=== PATIENT | female | born 2000 | race Caucasian/White ===

== ENCOUNTER 2019-11-09 06:50 | Emergency (ER) | payer SELFPAY ==
[~2019-11-09] VITALS: Ht 175 cm; Wt 136.0 kg
[2019-11-09] MEDS ORDERED: NS IV 1000 ML 1,000 ML IV SCH (07:00)
--- NOTE | 2019-11-09 07:05 | ED GU-Female ---
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 Hx of irreg menses w heavy bleeding in the past. Previous Hx of blood transfusion 2 to anemia caused by heavy vag. bleeding. Was on Depo for 2 years and states she had no bleeding for 2 years during that time. 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 Allergies and Home Medications Allergies Coded Allergies: hydrocodone (Verified Allergy, Unknown, 11/09/19) Home Medications Ibuprofen 800 Mg Tablet, 800 MG PO Q8H PRN for PAIN Prescribed by: VIKKI ERAZO on 11/09/19 0754 Medroxyprogesterone Acetate 10 Mg Tablet, 10 MG PO DAILY Prescribed by: VIKKI ERAZO on 11/09/19 0753 Patient Home Medication List Home Medication List Reviewed: Yes Review of Systems Review of Systems Constitutional: see HPI; No diaphoresis; dizziness; No fever, No malaise, No weakness Respiratory: No cough, No short of breath Cardiovascular: No chest pain, No edema, No palpitations, No syncope Gastrointestinal: No abdominal pain, No constipation, No diarrhea, No loss of appetite, No melena, No nausea, No vomiting Genitourinary: see HPI; denies burning, denies discharge, denies dysuria, denies frequency, denies flank pain, denies hematuria, denies incontinence, denies pain, denies urgency Musculoskeletal: No back pain, No joint pain Skin: No change in color, No change in hair/nails Psychiatric/Neurological: Denies Numbness, Denies Paresthesia, Denies Tingling, Denies Tremors, Denies Weakness Past Sozavvo-Qipmaq-Dqynsa Hx Past Med/Social Hx: Reviewed Nursing Past Med/Soc Hx Patient Social History Recent Foreign Travel: No Contact w/Someone Who Travel: No Recent Hopitalizations: No Physical Abuse: No Sexual Abuse: No Past Medical History Surgeries: Yes Eye Surgery, Gallbladder, Tonsillectomy Respiratory: No Cardiac: Yes Hypertension Neurological: No Genitourinary: No Gastrointestinal: No Musculoskeletal: No Endocrine: No HEENT: No Cancer: No Psychosocial: No Integumentary: No Blood Disorders: No Physical Exam Vital Signs Vital Signs - First Documented 11/09/19 06:50 Temp 37.1 Pulse 116 Resp 18 B/P (MAP) 169/104 (125) Pulse Ox 98 O2 Delivery Room Air Capillary Refill : Height, Weight, BMI Height: '" Weight: lbs. oz. kg; BMI Method: General Appearance: WD/WN, no apparent distress Cardiovascular: regular rate, rhythm, no edema, no gallop, no JVD Respiratory: chest non-tender, lungs clear Gastrointestinal: normal bowel sounds, non tender, soft Back: normal inspection, no CVA tenderness Extremities: normal range of motion, non-tender, no pedal edema Neurologic/Psychiatric: no motor/sensory deficits, alert, normal mood/affect Skin: normal color, warm/dry Progress/Results/Core Measures Suspected Sepsis SIRS Temperature: Pulse: Respiratory Rate: Laboratory Tests 11/09/19 07:08: White Blood Count 10.2 Blood Pressure / Mean: Laboratory Tests 11/09/19 07:08: Creatinine 0.80, Platelet Count 291 Results/Orders Lab Results Laboratory Tests Test 11/09/19 07:08 Range/Units White Blood Count 10.2 4.3-11.0 10^3/uL Red Blood Count 4.26 L 4.35-5.85 10^6/uL Hemoglobin 9.2 L 11.5-16.0 G/DL Hematocrit 31 L 35-52 % Mean Corpuscular Volume 73 L 80-99 FL Mean Corpuscular Hemoglobin 22 L 25-34 PG Mean Corpuscular Hemoglobin Concent 30 L 32-36 G/DL Red Cell Distribution Width 15.7 H 10.0-14.5 % Platelet Count 291 130-400 10^3/uL Mean Platelet Volume 10.4 7.4-10.4 FL Neutrophils (%) (Auto) 70 42-75 % Lymphocytes (%) (Auto) 22 12-44 % Monocytes (%) (Auto) 4 0-12 % Eosinophils (%) (Auto) 3 0-10 % Basophils (%) (Auto) 1 0-10 % Neutrophils # (Auto) 7.1 1.8-7.8 X 10^3 Lymphocytes # (Auto) 2.2 1.0-4.0 X 10^3 Monocytes # (Auto) 0.4 0.0-1.0 X 10^3 Eosinophils # (Auto) 0.3 0.0-0.3 10^3/uL Basophils # (Auto) 0.1 0.0-0.1 10^3/uL Sodium Level 140 135-145 MMOL/L Potassium Level 4.0 3.6-5.0 MMOL/L Chloride Level 104 98-107 MMOL/L Carbon Dioxide Level 23 21-32 MMOL/L Anion Gap 13 5-14 MMOL/L Blood Urea Nitrogen 10 7-18 MG/DL Creatinine 0.80 0.60-1.30 MG/DL Estimat Glomerular Filtration Rate > 60 BUN/Creatinine Ratio 13 Glucose Level 107 H 70-105 MG/DL Calcium Level 8.9 8.5-10.1 MG/DL My Orders Orders - ROVENSTVIKKI PINA DO Ed Iv/Invasive Line Start (11/09/19 06:56) Cbc With Automated Diff (11/09/19 06:56) Basic Metabolic Panel (11/09/19 06:56) Ns Iv 1000 Ml (Sodium Chloride 0.9%) (11/09/19 07:00) Vital Signs/I&O 11/09/19 11/09/19 06:50 08:01 Temp 37.1 36.6 Pulse 116 94 Resp 18 20 B/P (MAP) 169/104 (125) 146/91 (125) Pulse Ox 98 98 O2 Delivery Room Air Capillary Refill : Progress Note : Progress Note pt well appearing and in no distress w normal vitals (actually elevated BP). Discussed treatment and f/u w PCP this week, ER sooner if worse or not improving and unable to see PCP. Departure Impression Primary Impression: Menometrorrhagia Additional Impression: DUB (dysfunctional uterine bleeding) Disposition: 01 HOME, SELF-CARE Condition: Stable Departure-Patient Inst. Decision time for Depature: 07:54 Referrals: NO,LOCAL PHYSICIAN (PCP/Family) Primary Care Physician Patient Instructions: Heavy Periods (DC) Add. Discharge Instructions: Call Dr Jenkins's today to notify her of your heavy bleeding and your treatment given today in the ER. Schedule a follow up appointment with her this week. Return to the ER if your bleeding is not improving or if you become light headed or short of breath. All discharge instructions reviewed with patient and/or family. Voiced understanding. Scripts Ibuprofen (Ibuprofen) 800 Mg Tablet 800 MG PO Q8H PRN for PAIN, #30 TAB 0 Refills Prov: VIKKI ERAZO DO 11/09/19 Medroxyprogesterone Acetate (Provera) 10 Mg Tablet 10 MG PO DAILY, #10 TAB Prov: VIKKI ERAZO DO 11/09/19 VIKKI ERAZO DO Nov 09, 2019 07:05
[2019-11-09 07:44] LABS: WHITE BLOOD COUNT 10.2 10^3/uL (4.3-11.0)
[2019-11-09 07:45] LABS: BASOPHILS # (AUTO) 0.1 10^3/uL (0.0-0.1); BASOPHILS % (AUTO) 1 % (0-10); EOSINOPHILS # (AUTO) 0.3 10^3/uL (0.0-0.3); EOSINOPHILS % (AUTO) 3 % (0-10); HEMATOCRIT 31 % (35-52); HEMOGLOBIN 9.2 G/DL (11.5-16.0); LYMPHOCYTES # (AUTO) 2.2 X 10^3 (1.0-4.0); LYMPHOCYTES % (AUTO) 22 % (12-44); MEAN CORPUSCULAR HEMOGLOBIN 22 PG (25-34); MEAN CORPUSCULAR HGB CONC 30 G/DL (32-36); MEAN CORPUSCULAR VOLUME 73 FL (80-99); MEAN PLATELET VOLUME 10.4 FL (7.4-10.4); MONOCYTES # (AUTO) 0.4 X 10^3 (0.0-1.0); MONOCYTES % (AUTO) 4 % (0-12); NEUTROPHILS # (AUTO) 7.1 X 10^3 (1.8-7.8); NEUTROPHILS % (AUTO) 70 % (42-75); PLATELET COUNT 291 10^3/uL (130-400); RED CELL DISTRIBUTION WIDTH 15.7 % (10.0-14.5)
[2019-11-09 07:48] LABS: CARBON DIOXIDE 23 MMOL/L (21-32); CHLORIDE 104 MMOL/L (98-107); SODIUM 140 MMOL/L (135-145)
[2019-11-09 07:49] LABS: BUN/CREATININE RATIO 13; CALCIUM 8.9 MG/DL (8.5-10.1); GFR ESTIMATED > 60; GLUCOSE 107 MG/DL (70-105)
[2019-11-09] MEDS ORDERED: MEDR10TA PO (07:53)
[2019-11-09] MEDS ORDERED: IBUP-1780 PO (07:54)
[2019-11-09 08:01] VITALS: BP 146/91
== END 2019-11-09 08:01 | disposition home or self-care (01) ==
LOC: EDBD 06:56 → ER FS 06:56
DX: N92.1 Excessive and frequent menstruation with irregular cycle (principal); N93.8 Other specified abnormal uterine and vaginal bleeding
CPT/HCPCS: 36415; 80048; 85025

== ENCOUNTER → 2019-11-10 | Outpatient (CLI) | payer SELFPAY ==
[~2019-11-10] MED LIST: IBUP-1780 PO; MEDR10TA PO
[2019-11-10 10:18] LABS: HEMOGLOBIN 8.3 G/DL (11.5-16.0)
== END ==
LOC: LAB FS 09:45
PROVIDERS: ATTEND Family Medicine
DX: N92.0 Excessive and frequent menstruation with regular cycle (principal)
CPT/HCPCS: 36415; 85014; 85018

== ENCOUNTER 2019-11-21 21:03 | Inpatient (IN) | payer SELFPAY ==
[~2019-11-21] VITALS: Ht 175.3 cm; Wt 158.2 kg
--- NOTE | 2019-11-21 21:15 | ED General ---
General Stated Complaint: FEELING FAINT,CRAMPING,WEAKNESS,HIGH HEART RATE History of Present Illness Date Seen by Provider: November 21, 2019 Time Seen by Provider: 21:14 Initial Comments This patient is a 19-year-old female presents to the emerge from for abnormal vaginal bleeding. Patient was seen here 2 weeks ago for the same was given a shot of Provera. Patient also surgically seen and PCPs office and given a double shot. Patient states she still having vaginal bleeding. Patient has not followed up with RN HEMODIALYSIS. Denies any significant symptoms. Do medical evaluation treatment is needed. Patient is aware that ultrasound was not available this emergency department. Timing/Duration: 1 Week Associated Systoms: No Denies Symptoms, No Chest Pain, No Cough, No Diaphoresis, No Fever/Chills, No Headaches, No Loss of Appetite, No Malaise, No Nausea/Vomiting, No Rash, No Seizure, No Shortness of Air, No Syncope, No Weakness, No Other Allergies and Home Medications Allergies Coded Allergies: hydrocodone (Verified Allergy, Unknown, 11/09/19) Home Medications Ibuprofen 800 Mg Tablet, 800 MG PO Q8H PRN for PAIN Prescribed by: VIKKI ERAZO on 11/09/19 0754 Medroxyprogesterone Acetate 10 Mg Tablet, 10 MG PO DAILY Prescribed by: VIKKI ERAZO on 11/09/19 0753 Patient Home Medication List Home Medication List Reviewed: Yes Review of Systems Review of Systems Constitutional: No no symptoms reported; see HPI; No chills, No diaphoresis, No dizziness, No fever, No malaise, No weakness, No weight gain, No weight loss, No other EENTM: No see HPI, No no symptoms reported, No ear discharge, No hearing loss, No ear pain, No blurred vision, No double vision, No eye pain, No tearing, No vision loss, No dental problems, No hoarseness, No mouth pain, No mouth swelling, No epistaxis, No nose congestion, No nose pain, No throat pain, No throat swelling, No other Respiratory: No no symptoms reported, No see HPI, No cough, No dyspnea on exertion, No hemoptysis, No orthopnea, No phlegm, No short of breath, No str idor, No wheezing, No other Cardiovascular: No no symptoms reported, No see HPI, No chest pain, No edema, No Hx of Intervention, No palpitations, No syncope, No vascular heart diseas, No other Gastrointestinal: No RUQ, No LUQ, No RLQ, No LLQ, No no symptoms reported, No see HPI, No abdominal pain, No constipation, No diarrhea, No dysphagia, No hematemesis, No heartburn, No jaundice, No loss of appetite, No melena, No nausea, No vomiting, No other Genitourinary: No no symptoms reported; see HPI; No decreased output, No discharge, No dysuria, No frequency, No hematuria, No hesitancy, No incontinence, No nocturia, No pain, No other Musculoskeletal: No no symptoms reported, No see HPI, No back pain, No gout, No joint pain, No joint swelling, No muscle pain, No muscle stiffness, No muscle cramps, No muscle twitching, No muscle weakness, No neck pain, No other Skin: No no symptoms reported, No see HPI, No change in color, No change in hair/nails, No dryness, No hx of skin cancer, No lesions, No lumps, No pruritus, No rash, No other All Other Systems Reviewed Negative Unless Noted: Yes Past Wfodlrz-Ssnurc-Hxxnia Hx Patient Social History Recent Foreign Travel: No Contact w/Someone Who Travel: No Recent Hopitalizations: No Past Medical History Surgeries: Yes Eye Surgery, Gallbladder, Tonsillectomy Respiratory: No Cardiac: Yes Hypertension Neurological: No Genitourinary: No Gastrointestinal: No Musculoskeletal: No Endocrine: No HEENT: No Cancer: No Psychosocial: No Integumentary: No Blood Disorders: No Physical Exam Vital Signs Vital Signs - First Documented 11/21/19 21:07 Temp 36.9 Pulse 103 Resp 20 B/P (MAP) 154/49 (84) Pulse Ox 100 O2 Delivery Room Air Capillary Refill : Height, Weight, BMI Height: '" Weight: lbs. oz. kg; 44.00 BMI Method: General Appearance: No Apparent Distress, WD/WN HEENT: PERRL/EOMI, TMs Normal, Normal ENT Inspection, Pharynx Normal Neck: Full Range of Motion, Normal Inspection, Non Tender, Supple, Carotid Bruit Respiratory: Chest Non Tender, Lungs Clear, Normal Breath Sounds, No Accessory Muscle Use, No Respiratory Distress Cardiovascular: Regular Rate, Rhythm, No Edema, No Gallop, No JVD, No Murmur, Normal Peripheral Pulses Gastrointestinal: Normal Bowel Sounds, No Organomegaly, No Pulsatile Mass, Non Tender, Soft Progress/Results/Core Measures Suspected Sepsis SIRS Temperature: Pulse: Respiratory Rate: Laboratory Tests 11/21/19 21:38: White Blood Count 10.2 Blood Pressure / Mean: Laboratory Tests 11/21/19 21:38: Platelet Count 366 Results/Orders Lab Results Laboratory Tests Test 11/21/19 21:38 Range/Units White Blood Count 10.2 4.3-11.0 10^3/uL Red Blood Count 2.79 L 4.35-5.85 10^6/uL Hemoglobin 5.8 *L 11.5-16.0 G/DL Hematocrit 20 *L 35-52 % Mean Corpuscular Volume 71 L 80-99 FL Mean Corpuscular Hemoglobin 21 L 25-34 PG Mean Corpuscular Hemoglobin Concent 29 L 32-36 G/DL Red Cell Distribution Width 16.1 H 10.0-14.5 % Platelet Count 366 130-400 10^3/uL Mean Platelet Volume 10.1 7.4-10.4 FL Neutrophils (%) (Auto) 59 42-75 % Lymphocytes (%) (Auto) 32 12-44 % Monocytes (%) (Auto) 5 0-12 % Eosinophils (%) (Auto) 3 0-10 % Basophils (%) (Auto) 1 0-10 % Neutrophils # (Auto) 6.0 1.8-7.8 X 10^3 Lymphocytes # (Auto) 3.3 1.0-4.0 X 10^3 Monocytes # (Auto) 0.5 0.0-1.0 X 10^3 Eosinophils # (Auto) 0.3 0.0-0.3 10^3/uL Basophils # (Auto) 0.1 0.0-0.1 10^3/uL My Orders Orders - KAELYN SOTO MD Cbc With Automated Diff (11/21/19 21:13) Vital Signs/I&O 11/21/19 21:07 Temp 36.9 Pulse 103 Resp 20 B/P (MAP) 154/49 (84) Pulse Ox 100 O2 Delivery Room Air Capillary Refill : Progress Note : Time: 21:59 Progress Note I discussed discuss at length with Dr. Treviño on-call hospitalist. We did discuss patient's laboratory values the patient's H&H 5.8 and 20 patient appears to have hypovolemia related to vaginal bleeding. Needed blood transfusion. She accepts this patient for transfer patient be transferred to [facility] will be seen upon arrival. Patient will have type and screen and transfusion after arrival at [place]. Departure Impression Primary Impression: Hypovolemia due to hemorrhage Additional Impression: Abnormal vaginal bleeding Disposition: ADMITTED INPATIENT Condition: Stable Admissions Decision to Admit Reason: Admit from ER (General) Decision to Admit/Date: November 21, 2019 Time/Decision to Admit Time: 22:00 Transfer Transfer Reason: Exceeds level of care Time Spoke to Accepting Phy: 22:[address] Treviño has accepted this patient for transfer due to hypovolemia as from severe vaginal bleeding. We'll be seen upon arrival. Transfer Time: 22:01 Transfer Facility: Patient be transferred to [facility] Method of Transfer: EMS Departure-Patient Inst. Referrals: SHAHIDA HOLDER MD (PCP/Family) Primary Care Physician KAELYN SOTO MD November 21, 2019 21:15
[2019-11-21 21:50] LABS: HEMATOCRIT 20 % (35-52); HEMOGLOBIN 5.8 G/DL (11.5-16.0); MEAN CORPUSCULAR HEMOGLOBIN 21 PG (25-34); WHITE BLOOD COUNT 10.2 10^3/uL (4.3-11.0)
[2019-11-21 21:51] LABS: BASOPHILS # (AUTO) 0.1 10^3/uL (0.0-0.1); BASOPHILS % (AUTO) 1 % (0-10); EOSINOPHILS # (AUTO) 0.3 10^3/uL (0.0-0.3); EOSINOPHILS % (AUTO) 3 % (0-10); LYMPHOCYTES # (AUTO) 3.3 X 10^3 (1.0-4.0); LYMPHOCYTES % (AUTO) 32 % (12-44); MEAN CORPUSCULAR HGB CONC 29 G/DL (32-36); MEAN CORPUSCULAR VOLUME 71 FL (80-99); MEAN PLATELET VOLUME 10.1 FL (7.4-10.4); MONOCYTES # (AUTO) 0.5 X 10^3 (0.0-1.0); MONOCYTES % (AUTO) 5 % (0-12); NEUTROPHILS % (AUTO) 59 % (42-75); PLATELET COUNT 366 10^3/uL (130-400); RED CELL DISTRIBUTION WIDTH 16.1 % (10.0-14.5)
--- OUTSIDE RECORDS SUMMARY | 2019-11-21 22:45 | XMS REPORT | Continuity of Care Document ---
Demographics Preferred Language Unknown Marital Status Unknown Zoroastrian Affiliation Unknown Race Unknown Ethnic Group Unknown Author Organization Unknown Address Unknown Phone Unavailable Allergies There is no data. Medications There is no data. Problems There is no data. Procedures There is no data. Results There is no data. Encounters ACCT No. Visit Date/Time Discharge Status Pt. Type Provider Facility Loc./Unit Complaint [id number] 06/16/2012 15:26:56 RECURRING [id number] 08/26/2018 07:00:00 08/26/2018 23:59:5 9 CLS Outpatient SHAHIDA HOLDER [facility] IN [facility]
--- OUTSIDE RECORDS SUMMARY | 2019-11-21 23:16 | XMS REPORT | Continuity of Care Document ---
Demographics Preferred Language Unknown Marital Status Unknown Tenriism Affiliation Unknown Race Unknown Ethnic Group Unknown Author Organization Unknown Address Unknown Phone Unavailable Allergies There is no data. Medications There is no data. Problems There is no data. Procedures There is no data. Results There is no data. Encounters ACCT No. Visit Date/Time Discharge Status Pt. Type Provider Facility Loc./Unit Complaint [id number] 06/16/2012 15:26:56 RECURRING [id number] 08/26/2018 07:00:00 08/26/2018 23:59:5 9 CLS Outpatient SHAHIDA HOLDER [facility] IN [facility]
[2019-11-22] VITALS (18 sets, daily range): BP systolic 133–161; BP diastolic 83–110
[2019-11-22] MEDS ORDERED: NS IV 1000 ML 1,000 ML ONE (00:32)
[2019-11-22] MEDS: NS IV 1000 ML 1,000 ML IV SCH ×2 (00:43→17:10)
[2019-11-22] MEDS ORDERED: NS IV 500 ML 500 ML IV SCH (01:00)
[2019-11-22] MEDS: ACETAMINOPHEN 325 MG TABLET PO PRN ×2 (02:56→08:43)
[2019-11-22 09:55] LABS: BASOPHILS % (AUTO) 0 % (0-10); EOSINOPHILS # (AUTO) 0.2 10^3/uL (0.0-0.3); EOSINOPHILS % (AUTO) 1 % (0-10); HEMATOCRIT 24 % (35-52); HEMOGLOBIN 7.5 G/DL (11.5-16.0); LYMPHOCYTES # (AUTO) 2.5 X 10^3 (1.0-4.0); LYMPHOCYTES % (AUTO) 21 % (12-44); MEAN CORPUSCULAR HEMOGLOBIN 23 PG (25-34); MEAN CORPUSCULAR HGB CONC 32 G/DL (32-36); MEAN CORPUSCULAR VOLUME 73 FL (80-99); MEAN PLATELET VOLUME 9.9 FL (7.4-10.4); MONOCYTES # (AUTO) 0.7 X 10^3 (0.0-1.0); MONOCYTES % (AUTO) 6 % (0-12); NEUTROPHILS # (AUTO) 8.7 X 10^3 (1.8-7.8); NEUTROPHILS % (AUTO) 72 % (42-75); PLATELET COUNT 316 10^3/uL (130-400); RED CELL DISTRIBUTION WIDTH 17.3 % (10.0-14.5)
[2019-11-22] MEDS ORDERED: IBUP-2473 PO (10:00)
[2019-11-22] MEDS ORDERED: MULT-884 PO (10:00)
[2019-11-22] MEDS ORDERED: ATEN25TA PO (10:00)
[2019-11-22] MEDS ORDERED: ACET-2267 PO (10:00)
[2019-11-22 10:11] LABS: CHLORIDE 108 MMOL/L (98-107); POTASSIUM 3.5 MMOL/L (3.6-5.0); SODIUM 140 MMOL/L (135-145)
[2019-11-22 10:13] LABS: CALCIUM 8.7 MG/DL (8.5-10.1); GLUCOSE 105 MG/DL (70-105)
[2019-11-22 10:15] LABS: CARBON DIOXIDE 24 MMOL/L (21-32)
[2019-11-22 10:17] LABS: CREATININE SERUM 0.74 MG/DL (0.60-1.30); GFR ESTIMATED > 60
[2019-11-22 10:18] LABS: BUN/CREATININE RATIO 14
--- NOTE | 2019-11-22 10:37 | NUR ---
SPOKE WITH THE PT AND WENT THRU THE EXT MED HISTORY TO COMPLETE THE MED REC ATENOLOL 25MG- THE PT HAS PICKED THIS UP ON 05-17-2019 #90 AND THEN AGAIN ON 07-17-2019 #90- SHE FORGOT THE MAY BOTTLE AT A [facility]ILY [facility] HOUSE SO MICHELLE FILLED IT AGAIN ON 07-17-2019. THE NEXT TIME THE PT SAW THE FAMILY MEMBER THEY BROUGHT THE MAY 2019 BOTTLE WITH THEM. EVEN THOUGH IT LOOKS LIKE SHE IS PAST DUE FROM HER JULY 2019 FILL SHE WAS A MONTH AHEAD OF SCHEDULE AND STILL HAS SOME TABLETS LEFT. OTC MEDS: IBUPROFEN TYLENOL WOMENS [employer]
[2019-11-22] MEDS ORDERED: KCL 20 MEQ TAB (K-DUR) PO NR (12:00)
[2019-11-22] MEDS ORDERED: ATENOLOL 25 MG (TENORMIN) TAB PO SCH (12:00)
--- NOTE | 2019-11-22 12:00 | NUR ---
[address] CARRERA ABOUT CONSULT. [address] CARRERA 1000 SPOKE WITH OB FLOOR. DR CARRERA IN PROCEDURES. [address] CARRERA DIRECTLY. UPDATED HER ON PT STATUS. ORDERS RECEIVED. PT HAS REMAINED STABLE. NO NEW COMPLAINTS. NO ACUTE CHANGES. WILL CONTINUE TO MONITOR.
--- NOTE | 2019-11-22 12:40 | NUR ---
PT OFF FLOOR FOR PELVIC ULTRASOUND. TAKEN VIA WHEELCHAIR. ACCOMPANIED WITH US STAFF.
--- NOTE | 2019-11-22 13:29 | History & Physical-Hospitalist ---
History of Present Illness HPI/Chief Complaint Chelsi Moreno is a 19-year-old female who presented with vaginal bleeding. She reports that her period has lasted for the last 2 weeks. She was seen in the ER recently and was given a Provera injection. She followed up with her PCP, Dr. Jenkins, but her hemoglobin was stable at that time. She has a history of heavy periods and has required a transfusion in about 4 years ago. She had been on Depo-Provera for a couple years and was not having periods at that time. She has been off of this for the past 2 years but has not had any trouble. She has had heavy periods but nothing as severe as this. She reports feeling lightheaded and dizzy. She says that she was feeling like "she was out of her body". She denies any chest pain or shortness of breath. She denies any abdominal pain, nausea, vomiting, or diarrhea. She denies any other blood loss including hematochezia hematuria, hemoptysis, or epistaxis. Source: patient Exam Limitations: no limitations Date Seen 11/22/19 Time Seen by a Provider: 10:05 Attending Physician Corinna Treviño Katrina M MD Referring Physician Date of Admission November 21, 2019 at 21:52 Home Medications & Allergies Home Medications Reviewed patient Home Medication Reconciliation performed by pharmacy medication reconciliations sugarcane research technician and/or nursing. Patients Allergies have been reviewed. Allergies Allergies Coded Allergies hydrocodone (Verified Allergy, Unknown, 11/09/19) Past Scdoisr-Mmwckl-Dhbcyc Hx Past Med/Social Hx: Reviewed Nursing Past Med/Soc Hx Patient Social History Alcohol Use: Denies Use Recreational Drug Use: No Smoking Status: Never a Smoker Recent Foreign Travel: No Contact w/other who traveled: No Recent Hopitalizations: No Recent Infectious Disease Expo: No Past Medical History Surgeries: Eye Surgery, Gallbladder, Tonsillectomy Cardiac: Hypertension : No History of Blood Disorders: No Review of Systems Constitutional: dizziness EENTM: no symptoms reported Respiratory: no symptoms reported Cardiovascular: no symptoms reported Gastrointestinal: no symptoms reported LMP: Nov 08, 2019 Control/STD Prophylaxis: Depo Provera Musculoskeletal: no symptoms reported Skin: no symptoms reported Psychiatric/Neurological: No Symptoms Reported Physical Exam Physical Exam Vital Signs Vital Signs - First Documented 11/21/19 21:07 Temp 36.9 Pulse 103 Resp 20 B/P (MAP) 154/49 (84) Pulse Ox 100 O2 Delivery Room Air Capillary Refill : Less Than 3 Seconds Height, Weight, BMI Height: '" Weight: lbs. oz. kg; 51.38 BMI Method: General Appearance: No Apparent Distress, Obese HEENT: PERRL/EOMI, Pharynx Normal Neck: Normal Inspection, Supple Respiratory: Lungs Clear, Normal Breath Sounds, No Respiratory Distress Cardiovascular: No Edema, No Murmur, Tachycardia Gastrointestinal: Non Tender, Soft Extremity: Normal Inspection, Non Tender, No Pedal Edema Neurologic/Psychiatric: Alert, Oriented x3, No Motor/Sensory Deficits, Normal Mood/Affect Skin: Normal Color, Warm/Dry Results Results/Procedures Labs Laboratory Tests 11/21/19 21:38 11/22/19 09:45 Patient resulted labs reviewed. Assessment/Plan Admission Diagnosis Acute blood loss anemia Admission Status: Inpatient Order (span 2 midnights) Reason for Inpatient Admission: acute blood loss anemia requiring transfusion and further evaluation Assessment and Plan Acute blood loss anemia Vaginal bleeding hemoglobin 5.8 on arrival Type and screen performed Transfused 2 units PRBC repeat hemoglobin 7.5 SECURITY SYSTEMS ADMINISTRATOR consulted, appreciate assistance pelvic ultrasound ordered recheck CBC tomorrow morning Hypertension Continue atenolol DVT prophylaxis: Held due to major active bleeding Diagnosis/Problems Diagnosis/Problems (1) Acute blood loss anemia Status: Acute (2) Menorrhagia Status: Chronic (3) HTN (hypertension) Status: Chronic Qualifiers: Hypertension type: essential hypertension Qualified Codes: I10 - Essential (primary) hypertension Clinical Quality Measures DVT/VTE Risk/Contraindication: Risk Factor Score Per Nursin RFS Level Per Nursing on Admit: 2=Moderate FELICITAS DONALD MD November 22, 2019 13:29
--- NOTE | 2019-11-22 13:30 | NUR ---
PT BACK TO ROOM. NO NEW COMPLAINTS. NO ACUTE CHANGES. VITALS REMAINED STABLE. WILL CONTINUE TO MONITOR.
--- NOTE | 2019-11-22 16:06 | Diagnostic Imaging Report ---
PROCEDURE: US NONOB transvaginal. TECHNIQUE: Multiple real-time grayscale images were obtained of the pelvis in various projections endovaginally. INDICATION: Anemia. Menorrhagia. COMPARISON: None. FINDINGS: The uterus is mildly prominent measuring 11.5 x 5.9 x 5.6 cm. The endometrium is upper normal in thickness, measuring at 1.5 cm. No significant endometrial vascularity is seen. No focal uterine masses are seen. The ovaries are not seen bilaterally due to bowel gas. No free fluid is seen. IMPRESSION: 1. Uterus measures mildly large but no focal masses are seen. 2. The endometrium is upper normal in thickness for a premenopausal female in the secretory phase. 3. The ovaries are not seen. Dictated by: Dictated on workstation # [id number]
--- NOTE | 2019-11-22 17:22 | NUR ---
DR CARRERA TO PTS ROOM.
--- NOTE | 2019-11-22 17:38 | Consultation ---
History of Present Illness History of Present Illness Patient Consulted On(del/time) 11/22/19 17:36 Date Seen by Provider: November 22, 2019 Time Seen by Provider: 17:20 Reason for Visit: anemia/hypovolemia Allergies and Home Medications Allergies Coded Allergies: hydrocodone (Verified Allergy, Unknown, 11/09/19) Home Medications Acetaminophen 500 Mg Tablet, 1,000 MG PO Q6H PRN for PAIN-MILD (1-4), (Reported) Atenolol 25 Mg Tablet, 25 MG PO DAILY, (Reported) Ibuprofen 200 Mg Tablet, 400-800 MG PO Q8H PRN for PAIN-MILD (1-4), (Reported) Multivits,Ca,Minerals/Iron/FA 1 Each Tablet, 1 EACH PO DAILY, (Reported) Patient Home Medication List Home Medication List Reviewed: Yes Past Iqbsakc-Mmdzjg-Ocvtll Hx Past Med/Social Hx: Reviewed Nursing Past Med/Soc Hx Patient Social History Alcohol Use: Denies Use Recreational Drug Use: No Smoking Status: Never a Smoker Recent Foreign Travel: No Contact w/Someone Who Travel: No Recent Infectious Disease Expo: No Recent Hopitalizations: No Physical Abuse: No Sexual Abuse: No Mistreated: No Past Medical History Surgeries: Yes Eye Surgery, Gallbladder, Tonsillectomy Respiratory: No Cardiac: Yes Hypertension Neurological: No : No Genitourinary: No Gastrointestinal: No Musculoskeletal: No Endocrine: No HEENT: No Cancer: No Psychosocial: No Integumentary: No Blood Disorders: No Physical Exam-General Problems Physical Exam Vital Signs Vital Signs - First Documented 11/21/19 21:07 Temp 36.9 Pulse 103 Resp 20 B/P (MAP) 154/49 (84) Pulse Ox 100 O2 Delivery Room Air Capillary Refill : Less Than 3 Seconds Assessment/Plan Assessment/Plan Admission Diagnosis/Plan 1. Menorrhagia - likely anovulatory 2. Morbid Obesity 3. anemia - hypovolemia Plan US Continue Depo provera - see her in office for further management PCOS workup vWF TSH Iron replacement Clinical Quality Measures DVT/VTE Risk/Contraindication: Risk Factor Score Per Nursin RFS Level Per Nursing on Admit: 2=Moderate GENNARO CARRERA DO November 22, 2019 17:38
[2019-11-22] MEDS ORDERED: FERR-84 PO (17:40)
--- NOTE | 2019-11-22 17:43 | Discharge Inst-Women's Service ---
Discharge Inst-Women's Serv Depart Medication/Instructions Instructions Call Dr. Carrera to set up appointment for 1-2 weeks. [phone] If bleeding > 1 pad per hour x 2 hours, please call Dr. carrera or Dr. Jenkins Final Diagnosis menorrhagia anemia Consults/Follow Up Additional Follow Up: Yes (as above) Activity Activity: Activity as Tolerated Driving Instructions: You May Drive NO SMOKING: NO SMOKING Nothing Inside Vagina: No Douching, No [place], No Tampons Diet Discharge Diet: No Restrictions Return to The Hospital For: iron rich foods Symptoms to Report to : Bleeding Excessive, Vaginal Bleeding Increase, Cramps in Feet or Legs, Vaginal Discharge Foul For Any Problems or Questions: Contact Your Physician GENNARO CARRERA DO November 22, 2019 17:43
--- NOTE | 2019-11-22 20:00 | NUR ---
1929-RECEIVED A CALL FROM PTS MOTHER STATING THAT SHE WAS IN THE PARKING LOT WAITING ON PT TO COME DOWN WHEN WE WERE READY. I INFORMED THE MOTHER THAT DR. CARRERA SAID IT WAS OKAY FOR PT TO DC BUT DR. DONALD WANTED PT TO STAY 1 MORE NIGHT TO MONITOR PTS HEMOGLOBIN. PTS MOTHER UNDERSTOOD AND NO OTHER QUESTIONS AT THIS TIME FROM HER. 1934-WENT INTO PTS ROOM TO EDUCATE HER WHAT THE DOCTORS HAD DECIDED. PT STATES "I DONT CARE I WANT TO GO HOME". I INFORMED PT THAT IF SHE LEFT THAT SHE WOULD BE LEAVING AGAINST MEDICAL ADVICE. PT STATES "I KNOW, I DONT CARE, IM GOING HOME". 1939-PT EDUCATED AGAIN ABOUT AMA. PT SIGNED AMA FORM AT THIS TIME. IV TAKEN OUT. PT GETTING DRESSED AT THIS TIME. 1999-PT TAKEN OUT IN WHEELCHAIR AT THIS TIME BY PCT.
--- NOTE | 2019-11-22 20:00 | NUR ---
PT WOULD NOT ALLOW PHYSICAL ASSESSMENT OF PT. PT STATES "I AM LEAVING, IT DOESNT MATTER"
== END 2019-11-22 20:00 | disposition left against medical advice (07) | DRG 760 ==
LOC: EDUNIT# 21:03 → ER FS 21:06 → OBSVTOIN 21:52 → INTOOBSV 21:52 → ICU 21:52
PROVIDERS: ADMIT Internal Medicine; ATTEND Internal Medicine
DX: N92.0 Excessive and frequent menstruation with regular cycle (principal); D62 Acute posthemorrhagic anemia; E86.1 Hypovolemia; I10 Essential (primary) hypertension; E66.01 Morbid (severe) obesity due to excess calories; Z68.43 Body mass index [BMI] 50.0-59.9, adult; Z90.89 Acquired absence of other organs
CPT/HCPCS: 36415; 76830; 80048; 82627; 83001; 83002; 83498; 84270; 84402; 84403; 84443; 84702; 85025; 85240; 85245; 85246; 85247; 86850; 86900; 86901; 86920

== ENCOUNTER → 2019-12-13 | Outpatient (CLI) | payer SELFPAY ==
[~2019-12-13] MED LIST changes: +ACET-2267 PO; +ATEN25TA PO; +FERR-84 PO; +IBUP-2473 PO; +MULT-884 PO
[2019-12-13 20:02] LABS: HEMOGLOBIN 9.8 G/DL (11.5-16.0)
== END ==
LOC: LAB FS 19:00
PROVIDERS: ATTEND Family Medicine
DX: D50.9 Iron deficiency anemia, unspecified (principal)
CPT/HCPCS: 36415; 85014; 85018

== ENCOUNTER → 2020-03-16 | Outpatient (CLI) | payer OTHER ==
[2020-03-16 08:12] LABS: HEMATOCRIT 40 % (35-52); HEMOGLOBIN 12.9 G/DL (11.5-16.0); MEAN CORPUSCULAR HEMOGLOBIN 27 PG (25-34); MEAN CORPUSCULAR HGB CONC 32 G/DL (32-36); MEAN CORPUSCULAR VOLUME 84 FL (80-99); PLATELET COUNT 233 10^3/uL (130-400); WHITE BLOOD COUNT 13.2 10^3/uL (4.3-11.0)
[2020-03-16 08:13] LABS: BASOPHILS # (AUTO) 0.1 10^3/uL (0.0-0.1); BASOPHILS % (AUTO) 1 % (0-10); EOSINOPHILS # (AUTO) 0.6 10^3/uL (0.0-0.3); EOSINOPHILS % (AUTO) 4 % (0-10); LYMPHOCYTES # (AUTO) 4.7 X 10^3 (1.0-4.0); LYMPHOCYTES % (AUTO) 36 % (12-44); MEAN PLATELET VOLUME 10.4 FL (7.4-10.4); MONOCYTES # (AUTO) 0.8 X 10^3 (0.0-1.0); MONOCYTES % (AUTO) 6 % (0-12); NEUTROPHILS % (AUTO) 53 % (42-75)
== END ==
LOC: LAB FS 07:46
PROVIDERS: ATTEND Family Medicine
DX: R42 Dizziness and giddiness (principal); Z86.2 Personal history of diseases of the blood and blood-forming organs and certain disorders involving the immune mechanism
CPT/HCPCS: 36415; 85025

== ENCOUNTER 2021-03-25 11:36 | Emergency (ER) | payer SELFPAY ==
[~2021-03-25] VITALS: Ht 175 cm; Wt 157.8 kg
--- NOTE | 2021-03-25 11:46 | ED General ---
General Stated Complaint: RT BACK PAIN; DIARRHEA; MOTION SICKNESS History of Present Illness Date Seen by Provider: Mar 25, 2021 Time Seen by Provider: 11:46 Initial Comments 18-year-old female presents with onset of right flank pain this morning before her first urination of the day. States has history of kidney stones and is somewhat concerned this may be a kidney stone. Denies any pain with urination, any blood in her stool, any fever or abdominal pain. Some associated nausea without vomiting. Normal bowel movement. Irregular menses as she is on the Depo no concern of . Allergies and Home Medications Allergies Coded Allergies: hydrocodone (Verified Allergy, Unknown, 11/09/19) Patient Home Medication List Home Medication List Reviewed: Yes Acetaminophen (Tylenol Extra Strength) 500 Mg Tablet, 1,000 MG PO Q6H PRN for PAIN-MILD (1-4), (Reported) Entered as Reported by: DESHAUN STROUD on 11/22/19 1000 Atenolol (Atenolol) 25 Mg Tablet, 25 MG PO DAILY, (Reported) Entered as Reported by: DESHAUN STROUD on 11/22/19 1000 Ferrous Sulfate (Iron) 325 Mg Tablet, 325 MG PO BID Prescribed by: GENNARO CARRERA on 11/22/19 1740 Ibuprofen (Ibuprofen) 200 Mg Tablet, 400-800 MG PO Q8H PRN for PAIN-MILD (1-4), (Reported) Entered as Reported by: DESHAUN STROUD on 11/22/19 1000 Multivits,Ca,Minerals/Iron/FA (Women's Daily Caplet) 1 Each Tablet, 1 EACH PO DAILY, (Reported) Entered as Reported by: DESHAUN STROUD on 11/22/19 1000 Review of Systems Review of Systems Constitutional: no symptoms reported; No chills, No fever, No malaise, No weakness Respiratory: No cough, No short of breath Cardiovascular: No chest pain, No edema Gastrointestinal: No abdominal pain Genitourinary: No dysuria, No frequency, No hematuria, No hesitancy, No nocturia; pain (R flank/ back) Musculoskeletal: back pain Skin: No change in color, No rash Past Yyqwadx-Olfjwm-Ovvvxv Hx Patient Social History Tobacco Use?: No Past Medical History Surgeries: Yes Eye Surgery, Gallbladder, Tonsillectomy Respiratory: No Cardiac: Yes Hypertension Neurological: No Genitourinary: No Gastrointestinal: No Musculoskeletal: No Endocrine: No HEENT: No Cancer: No Psychosocial: No Integumentary: No Blood Disorders: No Physical Exam Vital Signs Vital Signs - First Documented 03/25/21 11:49 Temp 36.2 Pulse 85 Resp 18 B/P (MAP) 160/99 (119) Pulse Ox 96 O2 Delivery Room Air Capillary Refill : Height, Weight, BMI Height: '" Weight: lbs. oz. kg; 51.38 BMI Method: General Appearance: No Apparent Distress, WD/WN Respiratory: Chest Non Tender, Lungs Clear Cardiovascular: Regular Rate, Rhythm, No Edema Gastrointestinal: Non Tender, Soft Back: Normal Inspection, CVA Tenderness (R); No Decreased Range of Motion, No Vertebral Tenderness Neurologic/Psychiatric: Alert, Oriented x3, No Motor/Sensory Deficits, Normal Mood/Affect Progress/Results/Core Measures Suspected Sepsis SIRS Temperature: Pulse: Respiratory Rate: Blood Pressure / Mean: Results/Orders Lab Results Laboratory Tests Test 03/25/21 11:52 03/25/21 12:56 Range/Units Urine Test NEGATIVE NEGATIVE Urine Color OTHER H Urine Clarity TURBID H Urine pH 5.5 5-9 Urine Specific [place] >=1.030 1.016-1.022 Urine Protein TRACE H NEGATIVE Urine Glucose (UA) NEGATIVE NEGATIVE Urine Ketones TRACE H NEGATIVE Urine Nitrite POSITIVE H NEGATIVE Urine Bilirubin 1+ H NEGATIVE Urine Urobilinogen 0.2 < = 1.0 MG/DL Urine Leukocyte Esterase NEGATIVE NEGATIVE Urine RBC (Auto) TRACE H NEGATIVE Urine RBC NONE /HPF Urine WBC 0-2 /HPF Urine Squamous Epithelial Cells 0-2 /HPF Urine Crystals NONE /LPF Urine Bacteria LARGE H /HPF Urine Casts NONE /LPF Urine Mucus NEGATIVE /LPF Urine Culture Indicated YES My Orders Orders - ROVENSTINEVIKKI L DO Urinalysis (03/25/21 11:53) Hcg,Qualitative Urine (03/25/21 11:53) Ed Iv/Invasive Line Start (03/25/21 11:54) Ns Iv 1000 Ml (Sodium Chloride 0.9%) (03/25/21 12:00) Ondansetron Injection (Zofran Injectio (03/25/21 12:00) Urine Culture (03/25/21 12:56) Medications Given in ED Current Medications Medications Dose Ordered Sig/Robert Route Start Time Stop Time Status Last Admin Dose Admin Ondansetron HCl 4 mg ONCE ONCE IVP 03/25/21 12:00 03/25/21 12:01 DC 03/25/21 12:08 4 MG Vital Signs/I&O 03/25/21 11:49 Temp 36.2 Pulse 85 Resp 18 B/P (MAP) 160/99 (119) Pulse Ox 96 O2 Delivery Room Air Capillary Refill : Departure Impression Primary Impression: Back strain Qualified Codes: S39.012A - Strain of muscle, fascia and tendon of lower back, initial encounter Additional Impression: Dehydration Disposition: HOME, SELF-CARE Condition: Stable Departure-Patient Inst. Decision time for Depature: 13:21 Referrals: SHAHIDA HOLDER MD (PCP/Family) Primary Care Physician Patient Instructions: Back Muscle Strain (DC), Dehydration, Adult ED Add. Discharge Instructions: follow up with your PCP, dr Holder in 1 week for re-evaluation VIKKI ERAZO DO Mar 25, 2021 11:46
[2021-03-25] MEDS ORDERED: NS IV 1000 ML 1,000 ML IV SCH (12:00)
[2021-03-25] MEDS ORDERED: ONDANSETRON 4 MG/2 ML (SDV) Z0FRAN IVP ONE (12:00)
[2021-03-25 13:17] LABS: CLARITY,URINE TURBID; COLOR,URINE OTHER; GLUCOSE, URINE (UA) NEGATIVE (NEGATIVE); KETONES,URINE TRACE (NEGATIVE); NITRITE,URINE POSITIVE (NEGATIVE); PH,URINE 5.5 (5-9); PROTEIN,URINE TRACE (NEGATIVE)
[2021-03-25 13:18] LABS: BACTERIA,URINE LARGE /HPF; BILIRUBIN,URINE 1+ (NEGATIVE); LEUKOCYTE ESTERASE ,URINE NEGATIVE (NEGATIVE); SQUAMOUS EPITHELIAL CELL,UR 0-2 /HPF; WBC,URINE 0-2 /HPF
[2021-03-25 13:35] VITALS: BP 142/90
== END 2021-03-25 13:37 | disposition home or self-care (01) ==
LOC: EDUNIT# 11:36 → ER FS 11:37
DX: S39.012A Strain of muscle, fascia and tendon of lower back, initial encounter (principal); E86.0 Dehydration; I10 Essential (primary) hypertension; Z79.899 Other long term (current) drug therapy; X58.XXXA Exposure to other specified factors, initial encounter
CPT/HCPCS: 81000; 84703; 87088

== ENCOUNTER → 2021-08-12 | Outpatient (CLI) | payer SELFPAY ==
[2021-08-12 10:24] LABS: BASOPHILS # (AUTO) 0.1 10^3/uL (0.0-0.1); BASOPHILS % (AUTO) 1 % (0-10); EOSINOPHILS # (AUTO) 0.4 10^3/uL (0.0-0.3); EOSINOPHILS % (AUTO) 5 % (0-10); HEMATOCRIT 40 % (35-52); HEMOGLOBIN 13.2 g/dL (11.5-16.0); LYMPHOCYTES # (AUTO) 2.6 10^3/uL (1.0-4.0); LYMPHOCYTES % (AUTO) 34 % (12-44); MEAN CORPUSCULAR HEMOGLOBIN 28 pg (25-34); MEAN CORPUSCULAR HGB CONC 33 g/dL (32-36); MEAN CORPUSCULAR VOLUME 84 fL (80-99); MEAN PLATELET VOLUME 10.2 fL (9.0-12.2); MONOCYTES # (AUTO) 0.5 10^3/uL (0.0-1.0); MONOCYTES % (AUTO) 6 % (0-12); NEUTROPHILS # (AUTO) 4.1 10^3/uL (1.8-7.8); NEUTROPHILS % (AUTO) 53 % (42-75); PLATELET COUNT 238 10^3/uL (130-400); WHITE BLOOD COUNT 7.7 10^3/uL (4.3-11.0)
[2021-08-12 11:14] LABS: BILIRUBIN,TOTAL 0.6 MG/DL (0.1-1.0); CALCIUM 9.4 MG/DL (8.5-10.1); CREATININE SERUM 0.69 MG/DL (0.60-1.30); POTASSIUM 3.7 MMOL/L (3.6-5.0); TOTAL PROTEIN 7.3 GM/DL (6.4-8.2)
[2021-08-12 11:15] LABS: ALBUMIN 4.3 GM/DL (3.2-4.5)
== END ==
LOC: LAB FS 10:01
PROVIDERS: ATTEND Registered Nurse Emergency
DX: I10 Essential (primary) hypertension (principal); D50.9 Iron deficiency anemia, unspecified
CPT/HCPCS: 36415; 80053; 80061; 85025

== ENCOUNTER 2021-08-24 22:00 | Emergency (ER) | payer SELFPAY ==
[2021-08-24] MEDS ORDERED: ONDANSETRON 4 MG/2 ML (SDV) Z0FRAN IVP STA (22:05)
[2021-08-24] MEDS ORDERED: KETOROLAC 30 MG/ML VIAL IVP STA (22:05)
[2021-08-24] MEDS ORDERED: NS IV 1000 ML 1,000 ML IV STA (22:05)
--- NOTE | 2021-08-24 22:25 | ED General ---
General Stated Complaint: RT SIDE FLANK PAIN;BURNING W/ URIN;VERTIGO;NAUSEA Source of Information: Patient, Family (mother) History of Present Illness Date Seen by Provider: Aug 24, 2021 Time Seen by Provider: 22:06 Initial Comments 21-year-old female presenting with nausea, vomiting, flank pain. She states that she has burning pain with urination and left flank pain around 5 AM. After taking ibuprofen and having nausea and vomiting her pain resolved but now she has pain on the right flank. She has felt like she had subjective fever and chills. She did have an episode of diarrhea today. She has a history of recurrent urinary tract infections. She has had kidney stones when she was in high school. She denies any abdominal trauma. She has no cough, shortness of breath, congestion. She does feel lightheaded and dizzy. Timing/Duration: 12-24 Hours Severity: Severe Associated Systoms: No Chest Pain, No Cough, No Diaphoresis; Fever/Chills (Subjective); No Headaches, No Loss of Appetite; Malaise, Nausea/Vomiting; No Rash, No Seizure, No Shortness of Air, No Syncope, No Weakness Allergies and Home Medications Allergies Coded Allergies: hydrocodone (Verified Allergy, Unknown, 11/09/19) Patient Home Medication List Home Medication List Reviewed: Yes Acetaminophen (Tylenol Extra Strength) 500 Mg Tablet, 1,000 MG PO Q6H PRN for PAIN-MILD (1-4), (Reported) Entered as Reported by: DESHAUN STROUD on 11/22/19 1000 Atenolol (Atenolol) 25 Mg Tablet, 25 MG PO DAILY, (Reported) Entered as Reported by: DESHAUN STROUD on 11/22/19 1000 Ciprofloxacin HCl (Ciprofloxacin HCl) 500 Mg Tablet, 500 MG PO BID Prescribed by: BELA ESTEBAN on 08/24/21 2339 Ferrous Sulfate (Iron) 325 Mg Tablet, 325 MG PO BID Prescribed by: GENNARO CARRERA on 11/22/19 1740 Ibuprofen (Ibuprofen) 200 Mg Tablet, 400-800 MG PO Q8H PRN for PAIN-MILD (1-4), (Reported) Entered as Reported by: DESHAUN STROUD on 11/22/19 1000 Ibuprofen (Ibuprofen) 800 Mg Tablet, 800 MG PO Q8H PRN for PAIN Prescribed by: BELA ESTEBAN on 08/24/212338 Multivits,Ca,Minerals/Iron/FA (Women's Daily Caplet) 1 Each Tablet, 1 EACH PO DAILY, (Reported) Entered as Reported by: DESHAUN STROUD on 11/22/19 1000 Tamsulosin HCl (Flomax) 0.4 Mg Cap, 0.4 MG PO DAILY Prescribed by: BELA ESTEBAN on 08/24/212338 Tramadol HCl (Tramadol HCl) 50 Mg Tablet, 50 MG PO Q6H PRN for PAIN-SEVERE (8- 10) Prescribed by: BELA ESTEBAN on 08/24/212338 Review of Systems Review of Systems Constitutional: see HPI EENTM: no symptoms reported Respiratory: no symptoms reported Cardiovascular: no symptoms reported Gastrointestinal: see HPI Genitourinary: see HPI Musculoskeletal: no symptoms reported Skin: No rash Psychiatric/Neurological: Anxiety Past [place]nn[place]-Jpxbjf-Ulkiuf Hx Immunizations Up To Date Second COVID19 Vaccination James: 03/2021 Past Medical History Surgeries: Yes Eye Surgery, Gallbladder, Tonsillectomy Respiratory: No Cardiac: Yes Hypertension Neurological: No Genitourinary: No Gastrointestinal: No Musculoskeletal: No Endocrine: No HEENT: No Cancer: No Psychosocial: No Integumentary: No Blood Disorders: No Physical Exam Vital Signs Vital Signs - First Documented 08/24/21 22:05 Temp 37.3 Pulse 122 Resp 20 B/P (MAP) 172/100 (124) Pulse Ox 97 O2 Delivery Room Air Capillary Refill : Height, Weight, BMI Height: '" Weight: lbs. oz. kg; 51.00 BMI Method: General Appearance: Anxious, Obese HEENT: Normal ENT Inspection, Pharynx Normal Neck: Full Range of Motion, Normal Inspection, Non Tender, Supple Respiratory: Chest Non Tender, Lungs Clear, Normal Breath Sounds, No Accessory Muscle Use, No Respiratory Distress Cardiovascular: Regular Rate, Rhythm, Normal Peripheral Pulses Gastrointestinal: Normal Bowel Sounds, No Pulsatile Mass, Non Tender, Soft Rectal: Deferred Back: CVA Tenderness (R) Extremity: Normal Capillary Refill, Normal Inspection, No Pedal Edema Neurologic/Psychiatric: Alert, Oriented x3, bookmobile clerk II-XII Norm as Tested Skin: Normal Color, Warm/Dry Progress/Results/Core Measures Suspected Sepsis SIRS Temperature: Pulse: Respiratory Rate: Laboratory Tests 08/24/21 22:20: White Blood Count 17.0H Blood Pressure / Mean: Laboratory Tests 08/24/21 22:20: Creatinine 1.08, Platelet Count 298, Total Bilirubin 0.7 Results/Orders Lab Results Laboratory Tests Test 08/24/21 22:12 08/24/21 22:20 Range/Units Urine Color YELLOW Urine Clarity CLOUDY Urine pH 5.5 5-9 Urine Specific [place] >=1.030 1.016-1.022 Urine Protein TRACE H NEGATIVE Urine Glucose (UA) NEGATIVE NEGATIVE Urine Ketones NEGATIVE NEGATIVE Urine Nitrite NEGATIVE NEGATIVE Urine Bilirubin NEGATIVE NEGATIVE Urine Urobilinogen 0.2 < = 1.0 MG/DL Urine Leukocyte Esterase NEGATIVE NEGATIVE Urine RBC (Auto) 3+ H NEGATIVE Urine RBC >100 H /HPF Urine WBC 10-25 H /HPF Urine Squamous Epithelial Cells >50 H /HPF Urine Crystals NONE /LPF Urine Bacteria LARGE H /HPF Urine Casts NONE /LPF Urine Mucus LARGE H /LPF Urine Culture Indicated NO Urine Opiates Screen NEGATIVE NEGATIVE Urine Oxycodone Screen NEGATIVE NEGATIVE Urine Methadone Screen NEGATIVE NEGATIVE Urine Propoxyphene Screen NEGATIVE NEGATIVE Urine Barbiturates Screen NEGATIVE NEGATIVE Ur Tricyclic Antidepressants Screen NEGATIVE NEGATIVE Urine Phencyclidine Screen NEGATIVE NEGATIVE Urine Amphetamines Screen NEGATIVE NEGATIVE Urine Methamphetamines Screen NEGATIVE NEGATIVE Urine Benzodiazepines Screen NEGATIVE NEGATIVE Urine Cocaine Screen NEGATIVE NEGATIVE Urine Cannabinoids Screen NEGATIVE NEGATIVE White Blood Count 17.0 H 4.3-11.0 10^3/uL Red Blood Count 5.21 H 3.80-5.11 10^6/uL Hemoglobin 14.2 11.5-16.0 g/dL Hematocrit 44 35-52 % Mean Corpuscular Volume 84 80-99 fL Mean Corpuscular Hemoglobin 27 25-34 pg Mean Corpuscular Hemoglobin Concent 32 32-36 g/dL Red Cell Distribution Width 13.2 10.0-14.5 % Platelet Count 298 130-400 10^3/uL Mean Platelet Volume 10.3 9.0-12.2 fL Immature Granulocyte % (Auto) 0 % Neutrophils (%) (Auto) 79 H 42-75 % Lymphocytes (%) (Auto) 14 12-44 % Monocytes (%) (Auto) 6 0-12 % Eosinophils (%) (Auto) 1 0-10 % Basophils (%) (Auto) 1 0-10 % Neutrophils # (Auto) 13.4 H 1.8-7.8 X 10^3 Lymphocytes # (Auto) 2.4 1.0-4.0 X 10^3 Monocytes # (Auto) 0.9 0.0-1.0 X 10^3 Eosinophils # (Auto) 0.1 0.0-0.3 10^3/uL Basophils # (Auto) 0.1 0.0-0.1 10^3/uL Immature Granulocyte # (Auto) 0.1 0.0-0.1 10^3/uL Neutrophils % (Manual) 79 % Lymphocytes % (Manual) 16 % Monocytes % (Manual) 4 % Eosinophils % (Manual) 1 % Sodium Level 139 135-145 MMOL/L Potassium Level 4.1 3.6-5.0 MMOL/L Chloride Level 101 98-107 MMOL/L Carbon Dioxide Level 21 21-32 MMOL/L Anion Gap 17 H 5-14 MMOL/L Blood Urea Nitrogen 11 7-18 MG/DL Creatinine 1.08 0.60-1.30 MG/DL Estimat Glomerular Filtration Rate 74 BUN/Creatinine Ratio 10 Glucose Level 108 H 70-105 MG/DL Calcium Level 9.8 8.5-10.1 MG/DL Corrected Calcium 9.5 8.5-10.1 MG/DL Total Bilirubin 0.7 0.1-1.0 MG/DL Aspartate Amino Transf (AST/SGOT) 27 5-34 U/L Alanine Aminotransferase (ALT/SGPT) 24 0-55 U/L Alkaline Phosphatase 79 40-136 U/L Total Protein 8.0 6.4-8.2 GM/DL Albumin 4.4 3.2-4.5 GM/DL Lipase 26 8-78 U/L Smear Scan [facility] PLTS My Orders Orders - BELA ESTEBAN MD Comprehensive Metabolic Panel (08/24/21 22:05) Lipase (08/24/21 22:05) Ua Culture If Indicated (08/24/21 22:05) Ed Iv/Invasive Line Start (08/24/21:05) Cbc With Automated Diff (08/24/21:05) Drug Screen Stat (Urine) (08/24/21 22:05) Urine Bedside (08/24/21 22:05) Ns Iv 1000 Ml (Sodium Chloride 0.9%) (08/24/21 22:05) Ketorolac Injection (Toradol Injection) (08/24/21 22:05) Ondansetron Injection (Zofran Injectio (08/24/21 22:05) Ct Abd/Pelvis Wo(Kidney Stone) (08/24/21 22:19) Manual Differential (08/24/21 22:20) Ceftriaxone 1 Gm Pre-Mix (Rocephin 1 Gm (08/24/21 23:18) Tamsulosin Capsule (Flomax Capsule) (08/24/21 23:18) Strain Urine (08/24/21 23:18) Fentanyl Inj (Sublimaze Injection) (08/24/21 23:33) Rx-Ondansetron Po (Rx-Zofran Po) (08/24/21 23:33) Vital Signs/I&O 08/24/21 08/24/21 22:05 23:43 Temp 37.3 Pulse 122 86 Resp 20 20 B/P (MAP) 172/100 (124) 146/80 Pulse Ox 97 97 O2 Delivery Room Air Room Air 08/25/21 00:00 Intake Total 1050 ml Balance 1050 ml Capillary Refill : Progress Note #1: Progress Note Check urine and have basic labs as well as CT scan to look for signs of kidney stone versus pyelonephritis. Give normal saline 1 L IV fluids for hydration. Zofran 4 mg IV for nausea, Toradol 30 mg IV for pain Progress Note #2: Progress Note Urine shows blood as well as epithelial cells some bacteria. The white blood cell count is elevated to 17,000 which could partly be due to stress. The chemistry panel did not show any acute significant abnormality. Her CT scan does show signs of recently passed kidney stone from the left as well as a 4 mm kidney stone that is in the proximal ureter on the right. Counseled patient on findings and will treat for renal colic and pain. Encourage fluid hydration. Given information about follow-up and return precautions. Since she states she cannot tolerate hydrocodone will try a dose of fentanyl here and discharged with tramadol. Discharged with Zofran ODT for as needed nausea. Started on Flomax as well for help in passing the kidney stone Diagnostic Imaging Diagonstic Imaging: CT Plain Films/CT/US/NM/MRI: abdomen, pelvis Comments NAME: RAJENDRA ROPER MED REC#: [id number] PT STATUS: REG ER : 2000 PHYSICIAN: BELA ESTEBAN MD ADMIT DATE: 08/24/21/ER FS Draft Date of Exam:08/24/21 CT ABD/PELVIS WO(KIDNEY STONE) EXAMINATION: CT abdomen and pelvis without contrast. TECHNIQUE: Multiple contiguous axial images were obtained through the abdomen and pelvis without the use of intravenous contrast. All CT scans use one or more of the following dose optimizing techniques: automated exposure control, MA and/or KvP adjustment based on patient size and exam type or iterative reconstruction. HISTORY: Right flank pain. COMPARISON: None available. FINDINGS: Lung bases: The lung bases are clear. Solid organs: The liver is normal. The gallbladder is surgically absent. There is no biliary ductal dilation. Pancreas is normal. Spleen is normal. Adrenal glands are normal. There is a 0.4 cm calculus within the proximal right ureter resulting in moderate hydronephrosis. Bowel: The stomach and small bowel are normal without obstruction. The colon and appendix are normal. Peritoneum: There is no intraperitoneal free fluid or free air. No suspicious lymphadenopathy. Vasculature: Normal without aneurysm. Musculoskeletal: No suspicious osseous lesion or compression fracture. Pelvis: The uterus and adnexa are normal. There is a small 0.2 cm calculus within the dependent urinary bladder. IMPRESSION: 1. 0.4 cm calculus within the proximal right ureter resulting in mild right hydronephrosis. 2. Tiny stone within the dependent urinary bladder which may represent a recently passed stone. Dictated on workstation # [id number] Dict: 08/24/21 2249 Trans: 08/24/21 2254 [facility] [id number] Interpreted by: MIHAI VILLALOBOS DO Electronically signed by: Departure Impression Primary Impression: Renal colic on right side Additional Impression: Kidney stone on right side Disposition: 01 HOME, SELF-CARE Condition: Stable Departure-Patient Inst. Decision time for Depature: 23:36 Referrals: SHAHIDA HOLDER MD (PCP/Family) Primary Care Physician TARA BACH MD [facility] [phone] to call and get established for follow up Patient Instructions: Flank Pain ED, Kidney Stone, Adult ED, Kidney Stone Diet, How to Strain Your Urine Add. Discharge Instructions: Stay well hydrated and drink plenty of water. Take medicine for pain to help control your severe pain as the kidney stone is trying to move and pass. Use the nausea medicine to try and help keep your stomach settled so you can drink more fluids. If not improving in the next 3-5 days check with Urology. Follow up and establish care with [facility] for continued problems/concerns by calling [phone] Strain your urine to see when you pass the kidney stone. Scripts Ibuprofen (Ibuprofen) 800 Mg Tablet 800 MG PO Q8H PRN for PAIN for 10 Days, #30 TAB 0 Refills Prov: BELA ESTEBAN MD 08/24/21 Ciprofloxacin HCl (Ciprofloxacin HCl) 500 Mg Tablet 500 MG PO BID for UTI for 7 Days, #14 TAB 0 Refills Prov: BELA ESTEBAN MD 08/24/21 Tramadol HCl (Tramadol HCl) 50 Mg Tablet 50 MG PO Q6H PRN for PAIN-SEVERE (8-10) for 3 Days, #12 TAB 0 Refills Prov: BELA ESTEBAN MD 08/24/21 Tamsulosin HCl (Flomax) 0.4 Mg Cap 0.4 MG PO DAILY for renal colic for 7 Days, #7 CAP 0 Refills Prov: BELA ESTEBAN MD 08/24/21 BELA ESTEBAN MD Aug 24, 2021 22:25
[2021-08-24 22:28] LABS: BILIRUBIN,URINE NEGATIVE (NEGATIVE); CLARITY,URINE CLOUDY; COLOR,URINE YELLOW; GLUCOSE, URINE (UA) NEGATIVE (NEGATIVE); KETONES,URINE NEGATIVE (NEGATIVE); LEUKOCYTE ESTERASE ,URINE NEGATIVE (NEGATIVE); NITRITE,URINE NEGATIVE (NEGATIVE); PH,URINE 5.5 (5-9); PROTEIN,URINE TRACE (NEGATIVE)
[2021-08-24 22:29] LABS: AMPHETAMINE SCREEN, URINE NEGATIVE (NEGATIVE); BACTERIA,URINE LARGE /HPF; BARBITURATE SCREEN URINE NEGATIVE (NEGATIVE); BENZODIAZEPINES SCREEN URINE NEGATIVE (NEGATIVE); CANNABINOID SCREEN, URINE NEGATIVE (NEGATIVE); COCAINE SCREEN URINE NEGATIVE (NEGATIVE); METHADONE STAT NEGATIVE (NEGATIVE); METHAMPHETAMINE SCREEN URINE S NEGATIVE (NEGATIVE); OPIATE SCREEN URINE NEGATIVE (NEGATIVE); OXYCODONE STAT NEGATIVE (NEGATIVE); PROPOXYPHENE STAT NEGATIVE (NEGATIVE); RBC,URINE >100 /HPF; SQUAMOUS EPITHELIAL CELL,UR >50 /HPF; TRICYCLIC ANTIDEPRESSANTS SCRE NEGATIVE (NEGATIVE)
[2021-08-24 22:30] LABS: BASOPHILS # (AUTO) 0.1 10^3/uL (0.0-0.1); BASOPHILS % (AUTO) 1 % (0-10); EOSINOPHILS # (AUTO) 0.1 10^3/uL (0.0-0.3); EOSINOPHILS % (AUTO) 1 % (0-10); HEMATOCRIT 44 % (35-52); HEMOGLOBIN 14.2 g/dL (11.5-16.0); LYMPHOCYTES # (AUTO) 2.4 X 10^3 (1.0-4.0); LYMPHOCYTES % (AUTO) 14 % (12-44); MEAN CORPUSCULAR HEMOGLOBIN 27 pg (25-34); MEAN CORPUSCULAR HGB CONC 32 g/dL (32-36); MEAN CORPUSCULAR VOLUME 84 fL (80-99); MEAN PLATELET VOLUME 10.3 fL (9.0-12.2); MONOCYTES # (AUTO) 0.9 X 10^3 (0.0-1.0); MONOCYTES % (AUTO) 6 % (0-12); NEUTROPHILS # (AUTO) 13.4 X 10^3 (1.8-7.8); NEUTROPHILS % (AUTO) 79 % (42-75); PLATELET COUNT 298 10^3/uL (130-400)
[2021-08-24 22:45] LABS: BILIRUBIN,TOTAL 0.7 MG/DL (0.1-1.0); CALCIUM 9.8 MG/DL (8.5-10.1); CREATININE SERUM 1.08 MG/DL (0.60-1.30); POTASSIUM 4.1 MMOL/L (3.6-5.0)
[2021-08-24 22:46] LABS: ALBUMIN 4.4 GM/DL (3.2-4.5); EOSINOPHILS % (MANUAL) 1 %; LYMPHOCYTES % (MANUAL) 16 %; MONOCYTES % (MANUAL) 4 %; NEUTROPHILS % (MANUAL) 79 %; SMEAR SCAN COMMENT LRG PLTS
--- NOTE | 2021-08-24 22:54 | Diagnostic Imaging Report ---
EXAMINATION: CT abdomen and pelvis without contrast. TECHNIQUE: Multiple contiguous axial images were obtained through the abdomen and pelvis without the use of intravenous contrast. All CT scans use one or more of the following dose optimizing techniques: automated exposure control, MA and/or KvP adjustment based on patient size and exam type or iterative reconstruction. HISTORY: Right flank pain. COMPARISON: None available. FINDINGS: Lung bases: The lung bases are clear. Solid organs: The liver is normal. The gallbladder is surgically absent. There is no biliary ductal dilation. Pancreas is normal. Spleen is normal. Adrenal glands are normal. There is a 0.4 cm calculus within the proximal right ureter resulting in moderate hydronephrosis. Bowel: The stomach and small bowel are normal without obstruction. The colon and appendix are normal. Peritoneum: There is no intraperitoneal free fluid or free air. No suspicious lymphadenopathy. Vasculature: Normal without aneurysm. Musculoskeletal: No suspicious osseous lesion or compression fracture. Pelvis: The uterus and adnexa are normal. There is a small 0.2 cm calculus within the dependent urinary bladder. IMPRESSION: 1. 0.4 cm calculus within the proximal right ureter resulting in mild right hydronephrosis. 2. Tiny stone within the dependent urinary bladder which may represent a recently passed stone. Dictated by: Dictated on workstation # [id number]
[2021-08-24] MEDS ORDERED: TAMSULOSIN 0.4 MG (FLOMAX) CAP PO STA (23:18)
[2021-08-24] MEDS ORDERED: cefTRIAXone 1 GM PRE-MIX 50 ML IV STA (23:18)
[2021-08-24] MEDS ORDERED: fentaNYL INJ 100 MCG/2 ML AMP IVP STA (23:33)
[2021-08-24] MEDS ORDERED: RX-ONDANSETRON 4 MG ODT (ZOFRAN) PPK #4 PO STA (23:33)
[2021-08-24] MEDS ORDERED: TRM50T PO (23:39)
[2021-08-24] MEDS ORDERED: TMSL.4C PO (23:39)
[2021-08-24] MEDS ORDERED: IBUP-1780 PO (23:39)
[2021-08-24] MEDS ORDERED: CIPR500T5 PO (23:39)
[2021-08-24 23:43] VITALS: BP 146/80
== END 2021-08-24 23:49 | disposition home or self-care (01) ==
LOC: EDUNIT# 22:00 → ER FS 22:03
DX: N13.2 Hydronephrosis with renal and ureteral calculous obstruction (principal); D72.829 Elevated white blood cell count, unspecified; I10 Essential (primary) hypertension; E66.9 Obesity, unspecified; Z68.43 Body mass index [BMI] 50.0-59.9, adult; Z79.899 Other long term (current) drug therapy
CPT/HCPCS: 36415; 74176; 80053; 80306; 81000; 83690; 85007; 85027

== ENCOUNTER → 2022-02-21 | Outpatient (CLI) | payer SELFPAY ==
[~2022-02-21] MED LIST changes: +CIPR500T5 PO; +TMSL.4C PO; +TRM50T PO
[2022-02-21 09:18] LABS: BASOPHILS # (AUTO) 0.1 10^3/uL (0.0-0.1); BASOPHILS % (AUTO) 1 % (0-10); EOSINOPHILS # (AUTO) 0.5 10^3/uL (0.0-0.3); EOSINOPHILS % (AUTO) 5 % (0-10); HEMATOCRIT 41 % (35-52); HEMOGLOBIN 13.6 g/dL (11.5-16.0); LYMPHOCYTES # (AUTO) 3.5 10^3/uL (1.0-4.0); LYMPHOCYTES % (AUTO) 34 % (12-44); MEAN CORPUSCULAR HEMOGLOBIN 28 pg (25-34); MEAN CORPUSCULAR HGB CONC 33 g/dL (32-36); MEAN CORPUSCULAR VOLUME 85 fL (80-99); MEAN PLATELET VOLUME 10.4 fL (9.0-12.2); MONOCYTES # (AUTO) 0.7 10^3/uL (0.0-1.0); MONOCYTES % (AUTO) 7 % (0-12); NEUTROPHILS # (AUTO) 5.6 10^3/uL (1.8-7.8); NEUTROPHILS % (AUTO) 54 % (42-75); PLATELET COUNT 263 10^3/uL (130-400); WHITE BLOOD COUNT 10.5 10^3/uL (4.3-11.0)
[2022-02-21 16:43] LABS: FREE T4 (FREE THYROXINE) 0.93 NG/DL (0.70-1.48)
== END ==
LOC: LAB FS 08:57
PROVIDERS: ATTEND Registered Nurse Emergency
DX: D50.9 Iron deficiency anemia, unspecified (principal); N92.0 Excessive and frequent menstruation with regular cycle
CPT/HCPCS: 36415; 84439; 84443; 85025

== ENCOUNTER 2023-02-06 21:14 | Emergency (ER) | payer SELFPAY ==
[~2023-02-06] VITALS: Ht 175.2 cm; Wt 177.8 kg
[2023-02-06] MEDS ORDERED: NS IV 1000 ML 1,000 ML IV STA (21:20)
[2023-02-06] MEDS ORDERED: ONDANSETRON 4 MG/2 ML (SDV) Z0FRAN IVP STA (21:20)
[2023-02-06] MEDS ORDERED: KETOROLAC 15 MG/ML VIAL IVP STA ×2 (21:20→22:24)
[2023-02-06 21:43] LABS: BASOPHILS # (AUTO) 0.1 10^3/uL (0.0-0.1); BASOPHILS % (AUTO) 1 % (0-10); EOSINOPHILS # (AUTO) 0.4 10^3/uL (0.0-0.3); EOSINOPHILS % (AUTO) 3 % (0-10); HEMATOCRIT 43 % (35-52); HEMOGLOBIN 14.3 g/dL (11.5-16.0); LYMPHOCYTES # (AUTO) 3.9 10^3/uL (1.0-4.0); LYMPHOCYTES % (AUTO) 33 % (12-44); MEAN CORPUSCULAR HEMOGLOBIN 29 pg (25-34); MEAN CORPUSCULAR HGB CONC 34 g/dL (32-36); MEAN CORPUSCULAR VOLUME 87 fL (80-99); MEAN PLATELET VOLUME 10.3 fL (9.0-12.2); MONOCYTES # (AUTO) 0.6 10^3/uL (0.0-1.0); MONOCYTES % (AUTO) 5 % (0-12); NEUTROPHILS # (AUTO) 6.9 10^3/uL (1.8-7.8); NEUTROPHILS % (AUTO) 58 % (42-75); PLATELET COUNT 329 10^3/uL (130-400); WHITE BLOOD COUNT 11.9 10^3/uL (4.3-11.0)
[2023-02-06 21:44] LABS: BILIRUBIN,URINE NEGATIVE (NEGATIVE); COLOR,URINE YELLOW; GLUCOSE, URINE (UA) NEGATIVE (NEGATIVE); KETONES,URINE NEGATIVE (NEGATIVE); LEUKOCYTE ESTERASE ,URINE TRACE (NEGATIVE); NITRITE,URINE NEGATIVE (NEGATIVE); PROTEIN,URINE NEGATIVE (NEGATIVE)
[2023-02-06 21:45] LABS: CLARITY,URINE CLOUDY
[2023-02-06 21:48] LABS: BACTERIA,URINE LARGE /HPF; SQUAMOUS EPITHELIAL CELL,UR >50 /HPF; WBC,URINE 25-50 /HPF
--- NOTE | 2023-02-06 21:53 | Diagnostic Imaging Report ---
PROCEDURE: CT abdomen and pelvis without contrast. TECHNIQUE: Multiple contiguous axial images were obtained through the abdomen and pelvis without the use of intravenous contrast. Auto Exposure Controls were utilized during the CT exam to meet ALARA standards for radiation dose reduction. INDICATION: Back pain and flank pain. COMPARISON: 08/24/2021. FINDINGS: There is elevation of the right hemidiaphragm and the liver is incompletely included on the exam. There does appear to be fatty infiltration of the liver. The spleen appears normal. Cholecystectomy clips are noted. The pancreas is unremarkable. The adrenal glands appear normal. There are multiple tiny nonobstructing calculi in the right kidney. There is no right hydronephrosis. No calculi are seen in the ureter. There is no hydroureter. No calculi are seen in the left kidney and there is no hydronephrosis. The appendix is normal. The bowel loops are nondistended without obstruction. The aorta is normal in caliber. No lymphadenopathy is seen. No acute osseous abnormality is identified. IMPRESSION: 1. Nonobstructing calculi in the right kidney. No hydronephrosis or hydroureter. 2. Hepatic steatosis. Dictated by: Dictated on workstation # [id number]
--- NOTE | 2023-02-06 21:56 | ED Back Pain ---
General Chief Complaint: Back Problems Stated Complaint: LOWER BACK PAIN, NAUSEA Nursing Triage Note: Patient states that she began having burning with urination and flank pain at approximately midnight. Patient had been taking ibuprofen for pain. Patient states that she has also had some nausea without vomiting. Patient has a history of kidney stones and thought that she might having one as this feels similar. Source of Information: Patient History of Present Illness Date Seen by Provider: Feb 06, 2023 Time Seen by Provider: 21:16 Initial Comments 23-year-old female presenting with complaints of right flank and low back pain since midnight. She had some burning with urination yesterday but is better t bacilio. She has had nausea but no vomiting. She felt like her stools were a little loose compared to usual. She does have a history of prior kidney stones and urinary tract infections. She denies any fever, chills, vomiting, abdominal pain. Location: Lumbar Spine (Low back and right flank) Timing/Duration: 12-24 Hours Severity: Severe Modifying Factors: Worse With Other (Urination makes it worse) Associated Symptoms: No fever, No weakness, No numbness in legs/feet, No tingling in legs/feet, No sensory/motor loss; lower back pain; No loss of bladder control, No loss of bowel control Allergies and Home Medications Allergies Coded Allergies: hydrocodone (Verified Allergy, Unknown, 11/09/19) Patient Home Medication List Home Medication List Reviewed: Yes Acetaminophen (Tylenol Extra Strength) 500 Mg Tablet, 1,000 MG PO Q6H PRN for PAIN-MILD (1-4), (Reported) Entered as Reported by: DESHAUN STROUD on 11/22/19 1000 Atenolol (Atenolol) 25 Mg Tablet, 25 MG PO DAILY, (Reported) Entered as Reported by: DESHAUN STROUD on 11/22/19 1000 Ferrous Sulfate (Iron) 325 Mg Tablet, 325 MG PO BID Prescribed by: GENNARO CARRERA on 11/22/19 174 Ibuprofen (Ibuprofen) 200 Mg Tablet, 400-800 MG PO Q8H PRN for PAIN-MILD (1-4), (Reported) Entered as Reported by: DESHAUN STROUD on 11/22/19 1000 Ibuprofen (Ibuprofen) 800 Mg Tablet, 800 MG PO Q8H PRN for PAIN Prescribed by: BELA ESTEBAN on 7/28/23 2214 Multivits,Ca,Minerals/Iron/FA (Women's Daily Caplet) 1 Each Tablet, 1 EACH PO DAILY, (Reported) Entered as Reported by: DESHAUN STROUD on 11/22/19 1000 Ondansetron (Ondansetron Odt) 4 Mg Tab.rapdis, 4 MG PO Q6H PRN for NAUSEA/VOMITING Prescribed by: BELA ESTEBAN on 02/06/232225 Tamsulosin HCl (Flomax) 0.4 Mg Cap, 0.4 MG PO DAILY Prescribed by: BELA AGOSTORT on 02/06/232213 Tramadol HCl (Tramadol HCl) 50 Mg Tablet, 50 MG PO Q6H PRN for PAIN-SEVERE (8- 10) Prescribed by: BELA ESTEBAN on 02/06/232214 Discontinued Medications Ciprofloxacin HCl (Ciprofloxacin HCl) 500 Mg Tablet, 500 MG PO BID Prescribed by: BELA ESTEBAN on 08/24/21 2339 Review of Systems Constitutional: No chills, No fever EENTM: no symptoms reported Respiratory: no symptoms reported Cardiovascular: palpitations Gastrointestinal: see HPI, nausea; No vomiting Genitourinary: dysuria (Yesterday but better today), pain (Right flank and low back pain) : No Musculoskeletal: see HPI Skin: No change in color Psychiatric/Neurological: No Symptoms Reported Past Loktyox-Iklknz-Ppqpbf Hx Patient Social History Tobacco Use?: No Substance use?: No Alcohol Use?: No Pt feels they are or have been: No Immunizations Up To Date Second COVID19 Vaccination James: 03/2021 Past Medical History Surgery/Hospitalization HX: Kidney stones, cholecystectomy, tonsillectomy Surgeries: Yes Eye Surgery, Gallbladder, Tonsillectomy Respiratory: No Cardiac: Yes Hypertension Neurological: No Genitourinary: No Gastrointestinal: No Musculoskeletal: No Endocrine: No HEENT: No Cancer: No Psychosocial: No Integumentary: No Blood Disorders: No Physical Exam Vital Signs Vital Signs - First Documented 02/06/23 21:20 Temp 37.6 Pulse 131 Resp 20 B/P (MAP) 155/96 (115) Pulse Ox 97 O2 Delivery Room Air Capillary Refill : Less Than 3 Seconds Height, Weight, BMI Height: '" Weight: lbs. oz. kg; 57.00 BMI Method: General Appearance: No Apparent Distress, Obese Cardiovascular: Normal Peripheral Pulses, Tachycardia Respiratory: Chest Non Tender, Lungs Clear, Normal Breath Sounds Gastrointestinal: Normal Bowel Sounds, No Pulsatile Mass, Non Tender, Soft Back: No CVA Tenderness, No Vertebral Tenderness, Other (Tender to the right flank and low back) Extremity: Normal Capillary Refill, Normal Inspection, No Pedal Edema Neurologic/Psychiatric: Alert, Oriented x3 Skin: Normal Color, Warm/Dry Progress/Results/Core Measures Results/Orders Lab Results Laboratory Tests Test 02/06/23 21:27 02/06/23 21:32 Range/Units Urine Color YELLOW Urine Clarity CLOUDY Urine pH 6.0 5-9 Urine Specific [place] >=1.030 1.016-1.022 Urine Protein NEGATIVE NEGATIVE Urine Glucose (UA) NEGATIVE NEGATIVE Urine Ketones NEGATIVE NEGATIVE Urine Nitrite NEGATIVE NEGATIVE Urine Bilirubin NEGATIVE NEGATIVE Urine Urobilinogen 0.2 < = 1.0 MG/DL Urine Leukocyte Esterase TRACE H NEGATIVE Urine RBC (Auto) NEGATIVE NEGATIVE Urine RBC 5-10 H /HPF Urine WBC 25-50 H /HPF Urine Squamous Epithelial Cells >50 H /HPF Urine Crystals NONE /LPF Urine Bacteria LARGE H /HPF Urine Casts NONE /LPF Urine Mucus NEGATIVE /LPF Urine Culture Indicated NO White Blood Count 11.9 H 4.3-11.0 10^3/uL Red Blood Count 4.90 3.80-5.11 10^6/uL Hemoglobin 14.3 11.5-16.0 g/dL Hematocrit 43 35-52 % Mean Corpuscular Volume 87 80-99 fL Mean Corpuscular Hemoglobin 29 25-34 pg Mean Corpuscular Hemoglobin Concent 34 32-36 g/dL Red Cell Distribution Width 12.6 10.0-14.5 % Platelet Count 329 130-400 10^3/uL Mean Platelet Volume 10.3 9.0-12.2 fL Immature Granulocyte % (Auto) 0 % Neutrophils (%) (Auto) 58 42-75 % Lymphocytes (%) (Auto) 33 12-44 % Monocytes (%) (Auto) 5 0-12 % Eosinophils (%) (Auto) 3 0-10 % Basophils (%) (Auto) 1 0-10 % Neutrophils # (Auto) 6.9 1.8-7.8 10^3/uL Lymphocytes # (Auto) 3.9 1.0-4.0 10^3/uL Monocytes # (Auto) 0.6 0.0-1.0 10^3/uL Eosinophils # (Auto) 0.4 H 0.0-0.3 10^3/uL Basophils # (Auto) 0.1 0.0-0.1 10^3/uL Immature Granulocyte # (Auto) 0.0 0.0-0.1 10^3/uL Sodium Level 142 135-145 MMOL/L Potassium Level 3.8 3.6-5.0 MMOL/L Chloride Level 103 98-107 MMOL/L Carbon Dioxide Level 22 21-32 MMOL/L Anion Gap 17 H 5-14 MMOL/L Blood Urea Nitrogen 12 7-18 MG/DL Creatinine 0.82 0.60-1.30 MG/DL Estimat Glomerular Filtration Rate 102 BUN/Creatinine Ratio 15 Glucose Level 119 H 70-105 MG/DL Calcium Level 10.1 8.5-10.1 MG/DL Corrected Calcium 8.5-10.1 MG/DL Total Bilirubin 0.4 0.1-1.0 MG/DL Aspartate Amino Transf (AST/SGOT) 23 5-34 U/L Alanine Aminotransferase (ALT/SGPT) 27 0-55 U/L Alkaline Phosphatase 86 40-136 U/L Total Protein 7.7 6.4-8.2 GM/DL Albumin 4.6 H 3.2-4.5 GM/DL Lipase 47 8-78 U/L My Orders Orders - BELA ESTEBAN MD Ua Culture If Indicated (02/06/23 21:18) Urine Bedside (02/06/23 21:18) Comprehensive Metabolic Panel (02/06/23 21:20) Lipase (02/06/23 21:20) Ed Iv/Invasive Line Start (02/06/23 21:20) Cbc With Automated Diff (02/06/23 21:20) Ct Abdomen/Pelvis Wo (02/06/23 21:20) Ns Iv 1000 Ml (Sodium Chloride 0.9%) (02/06/23 21:20) Ketorolac Injection (Toradol Injection) (02/06/23 21:20) Ondansetron Injection (Zofran Injectio (02/06/23 21:20) Rx-Ondansetron Po (Rx-Zofran Po) (02/06/23 22:24) Rx-Tramadol Hcl (Rx-Ultram) (02/06/23 22:24) Ketorolac Injection (Toradol Injection) (02/06/23 22:24) Vital Signs/I&O 02/06/23 21:20 Temp 37.6 Pulse 131 Resp 20 B/P (MAP) 155/96 (115) Pulse Ox 97 O2 Delivery Room Air Blood Pressure Mean: 115 Progress Progress Note #1: Progress Note Potential diagnosis of pyelonephritis, renal colic, kidney stones, colitis, diverticulitis, cystitis. Obtain peripheral IV access and send labs for complete blood count, c omprehensive metabolic profile, lipase. Urinalysis and bedside test. CT scan of the abdomen and pelvis without IV contrast to look for pathology causing her pain and/or kidney stones that might be present. Normal saline 1 L IV fluid bolus for hydration, Zofran 4 mg IV for nausea and vomiting, Toradol 15 mg IV for possible renal colic and low back pain. Progress Note #2: Progress Note On my personal interpretation and review of her labs her urinalysis was concentrated with a specific gravity greater than 1.030 but she had no nitrites or leukocyte esterase to indicate an infection. There was blood and white blood cells present and several epithelial cells for possible contaminated specimen. Blood count showed mild elevation of her white blood cell count upper limit of normal at 11.9 with a normal differential. Hemoglobin was good at 14.3 and platelets of 329. Her comprehensive metabolic panel did not show any acute significant electrolyte abnormalities or renal or hepatic dysfunction. Lipase was normal. CT scan of the abdomen pelvis without IV contrast that showed several small stones in the right kidney but no hydroureter or hydronephrosis. Patient reports that her pain improved with the medication but was starting to come back. Will repeat the Toradol 15 mg IV to help with pain and send with a take-home pack of tramadol 50 mg 1 p.o. every 6 hours as needed pain and Zofran 4 mg ODT 1 every 6 hours as needed for nausea and vomiting. Prescription sent to [facility] pharmacy for Flomax 0.4 mg p.o. daily for renal colic, ibuprofen 800 mg p.o. every 8 hours as needed pain and inflammation, tramadol 50 mg p.o. every 6 hours as needed for severe pain, Zofran 4 mg ODT p.o. every 6 hours. Nausea and vomiting. Encouraged to push fluids and hydration. Check back with Dr. Bonner with urology or her primary care provider if having worsening symptoms or not improving over the next 5 to 7 days. Diagnostic Imaging Diagonstic Imaging: CT Plain Films/CT/US/NM/MRI: abdomen, pelvis Comments NAME: RAJENDRA ROPER [employer] REC#: [id number] PT STATUS: REG ER : 2000 PHYSICIAN: BELA ESTEBAN MD ADMIT DATE: 02/06/23/ER FS Draft Date of Exam:02/06/23 CT ABDOMEN/PELVIS WO PROCEDURE: CT abdomen and pelvis without contrast. TECHNIQUE: Multiple contiguous axial images were obtained through the abdomen and pelvis without the use of intravenous contrast. Auto Exposure Controls were utilized during the CT exam to meet ALARA standards for radiation dose reduction. INDICATION: Back pain and flank pain. COMPARISON: 08/24/2021. FINDINGS: There is elevation of the right hemidiaphragm and the liver is incompletely included on the exam. There does appear to be fatty infiltration of the liver. The spleen appears normal. Cholecystectomy clips are noted. The pancreas is unremarkable. The adrenal glands appear normal. There are multiple tiny nonobstructing calculi in the right kidney. There is no right hydronephrosis. No calculi are seen in the ureter. There is no hydroureter. No calculi are seen in the left kidney and there is no hydronephrosis. The appendix is normal. The bowel loops are nondistended without obstruction. The aorta is normal in caliber. No lymphadenopathy is seen. No acute osseous abnormality is identified. IMPRESSION: 1. Nonobstructing calculi in the right kidney. No hydronephrosis or hydroureter. 2. Hepatic steatosis. Dictated on workstation # [id number] Dict: 02/06/232145 Trans: 02/06/232151 [facility] [id number] Interpreted by: ARTURO GONZALEZ MD Electronically signed by: Reviewed: Reviewed by Me Departure Impression Primary Impression: Renal colic on right side Additional Impression: Dehydration Disposition: 01 HOME, SELF-CARE Condition: Improved Departure-Patient Inst. Decision time for Depature: 22:11 Referrals: SHAHIDA HOLDER MD (PCP/Family) Primary Care Physician Patient Instructions: Dehydration, Adult ED, Kidney Stone, Adult ED, Renal Colic (DC), Why Water Is Important to Health Add. Discharge Instructions: Try to stay well-hydrated and keep sipping on fluids. Make sure you are drinking plenty of water and electrolyte drinks to help flush out your urine. Take the pain medicine to help with inflammation from the kidney stones. Check back with the clinic or urologist if symptoms are worsening or not improving. All discharge instructions reviewed with patient and/or family. Voiced understanding. Scripts Ondansetron (Ondansetron Odt) 4 Mg Tab.rapdis 4 MG PO Q6H PRN for NAUSEA/VOMITING for 3 Days, #12 TAB 0 Refills Prov: BELA ESTEBAN MD 02/06/23 Ibuprofen (Ibuprofen) 800 Mg Tablet 800 MG PO Q8H PRN for PAIN for 10 Days, #30 TAB 0 Refills Prov: BELA ESTEBAN MD 02/06/23 Tramadol HCl (Tramadol HCl) 50 Mg Tablet 50 MG PO Q6H PRN for PAIN-SEVERE (8-10) for 3 Days, #12 TAB 0 Refills Prov: BELA ESTEBAN MD 02/06/23 Tamsulosin HCl (Flomax) 0.4 Mg Cap 0.4 MG PO DAILY for renal colic for 7 Days, #7 CAP 0 Refills Prov: BELA ESTEBAN MD 02/06/23 BELA ESTEBAN MD Feb 06, 2023 21:56
[2023-02-06 22:04] LABS: ALANINE AMINOTRANSFERASE 27 U/L (0-55); ALBUMIN 4.6 GM/DL (3.2-4.5); ALKALINE PHOSPHATASE 86 U/L (40-136); BILIRUBIN,TOTAL 0.4 MG/DL (0.1-1.0); BUN/CREATININE RATIO 15; CALCIUM 10.1 MG/DL (8.5-10.1); CARBON DIOXIDE 22 MMOL/L (21-32); CHLORIDE 103 MMOL/L (98-107); CREATININE SERUM 0.82 MG/DL (0.60-1.30); GFR ESTIMATED 102; GLUCOSE 119 MG/DL (70-105); LIPASE 47 U/L (8-78); POTASSIUM 3.8 MMOL/L (3.6-5.0); SODIUM 142 MMOL/L (135-145); TOTAL PROTEIN 7.7 GM/DL (6.4-8.2)
[2023-02-06] MEDS ORDERED: IBUP-1780 PO (22:14)
[2023-02-06] MEDS ORDERED: TMSL.4C PO (22:14)
[2023-02-06] MEDS ORDERED: TRM50T PO (22:14)
[2023-02-06] MEDS ORDERED: RX-ONDANSETRON 4 MG ODT (ZOFRAN) PPK #4 PO STA (22:24)
[2023-02-06] MEDS ORDERED: ONDA4TAB11 PO (22:26)
[2023-02-06 22:30] VITALS: BP 149/83
== END 2023-02-06 22:31 | disposition home or self-care (01) ==
LOC: EDUNIT# 21:14 → ER FS 21:15
DX: N20.0 Calculus of kidney (principal); E86.0 Dehydration; D72.829 Elevated white blood cell count, unspecified
CPT/HCPCS: 36415; 74176; 80053; 81000; 83690; 84703; 85025

== ENCOUNTER 2023-04-27 12:09 | Emergency (ER) | payer SELFPAY ==
[~2023-04-27] VITALS: Ht 175.3 cm; Wt 180.5 kg
[2023-04-27 12:09] VITALS: BP 116/74
[~2023-04-27 12:09] MED LIST changes: +ONDA4TAB11 PO
[2023-04-27] MEDS ORDERED: NS IV 1000 ML 1,000 ML IV STA (12:23)
[2023-04-27] MEDS ORDERED: ADENOSINE INJECTION 6 MG/2 ML VIAL IV STA (12:23)
--- NOTE | 2023-04-27 12:33 | ED Cardiac General ---
History of Present Illness General Chief Complaint: Chest Pain Stated Complaint: CP; ARRHYTHMIA; RT ARM PAIN; NEAR SYNCOPE; NAUSEA Source: patient, mother History of Present Illness Date Seen by Provider: Apr 27, 2023 Time Seen by Provider: 12:14 Initial Comments 23-year-old female presenting with her mother to the emergency department due to complaints of heart racing and nausea with near syncope. She felt like her heart was racing on her and that she was going to pass out. She states this has been happening periodically since she was a child. Normally she will hit herself in the chest or bounced up and down on her bed and I will get her heart beat to get back to normal. However she had been trying this for over an hour and it was not helping so she came to the emergency department. 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 She states that she has not seen a family dentist since then. She denied having any vomiting or diarrhea. She had had no fever, chills, cough, shortness of breath, abdominal pain. Timing/Duration: 1-3 hours Severity: severe Activities at Onset: rest Prior CP/Workup: no prior cardiac workup NTG SL CULINARY ASSISTANT: No ASA po CULINARY ASSISTANT: No Associated Systoms: Chest Pain (Tightness in her chest and going down her right arm); No Cough, No Diaphoresis, No Fever/Chills, No Headaches; Malaise, Nausea/Vomiting (Nausea but no vomiting); No Seizure; Shortness of Air; No Syncope (Near syncope); Weakness Allergies and Home Medications Allergies Coded Allergies: hydrocodone (Verified Allergy, Unknown, 11/09/19) Patient Home Medication List Home Medication List Reviewed: Yes Acetaminophen (Tylenol Extra Strength) 500 Mg Tablet, 1,000 MG PO Q6H PRN for PAIN-MILD (1-4), (Reported) Entered as Reported by: DESHAUN STROUD on 11/22/19 1000 Atenolol (Atenolol) 25 Mg Tablet, 25 MG PO DAILY, (Reported) Entered as Reported by: DESHAUN STROUD on 11/22/19 1000 Ferrous Sulfate (Iron) 325 Mg Tablet, 325 MG PO BID Prescribed by: GENNARO CARRERA on 11/22/19 174 Ibuprofen (Ibuprofen) 200 Mg Tablet, 400-800 MG PO Q8H PRN for PAIN-MILD (1-4), (Reported) Entered as Reported by: DESHAUN STROUD on 11/22/19 1000 Ibuprofen (Ibuprofen) 800 Mg Tablet, 800 MG PO Q8H PRN for PAIN Prescribed by: BELA ESTEBAN on 02/06/232213 Multivits,Ca,Minerals/Iron/FA (Women's Daily Caplet) 1 Each Tablet, 1 EACH PO DAILY, (Reported) Entered as Reported by: DESHAUN STROUD on 11/22/19 1000 Ondansetron (Ondansetron Odt) 4 Mg Tab.rapdis, 4 MG PO Q6H PRN for NAUSEA/VOMITING Prescribed by: BELA ESTEBAN on 02/06/232225 Tamsulosin HCl (Flomax) 0.4 Mg Cap, 0.4 MG PO DAILY Prescribed by: BELA ESTEBAN on 02/06/232213 Tramadol HCl (Tramadol HCl) 50 Mg Tablet, 50 MG PO Q6H PRN for PAIN-SEVERE (8- 10) Prescribed by: BELA ESTEBAN on 02/06/232214 Review of Systems Review of Systems Constitutional: No chills; dizziness; No fever; malaise EENTM: No Symptoms Reported Respiratory: No Symptoms Reported Cardiovascular: No Symptoms Reported Past [id number] Hx Immunizations Up To Date Second COVID19 Vaccination James: 03/2021 Past Medical History Surgery/Hospitalization HX: Kidney stones, cholecystectomy, tonsillectomy Surgeries: Yes Eye Surgery, Gallbladder, Tonsillectomy Respiratory: No Cardiac: Yes Hypertension Neurological: No Genitourinary: No Gastrointestinal: No Musculoskeletal: No Endocrine: No HEENT: No Cancer: No Psychosocial: No Integumentary: No Blood Disorders: No Physical Exam Vital Signs Vital Signs - First Documented 04/27/23 12:09 Temp 36.7 Pulse 225 Resp 19 B/P (MAP) 116/74 (88) Pulse Ox 98 O2 Delivery Room Air Capillary Refill : Height, Weight, BMI Height: '" Weight: lbs. oz. kg; 57.00 BMI Method: General Appearance: Anxious, Obese HEENT: PERRL/EOMI, Pharynx Normal Neck: Full Range of Motion, Normal Inspection, Non Tender, Supple Respiratory: Chest Non Tender, Lungs Clear, Normal Breath Sounds, No Accessory Muscle Use, No Respiratory Distress Cardiovascular: No Murmur, Normal Peripheral Pulses, Tachycardia Gastrointestinal: Normal Bowel Sounds, No Pulsatile Mass, Non Tender, Soft Extremity: Normal Capillary Refill, No Pedal Edema Neurologic/Psychiatric: Alert, Oriented x3, kiln setter II-XII Norm as Tested Skin: Warm/Dry Progress/Results/Core Measures Results/Orders Lab Results Laboratory Tests Test 04/27/23 12:50 04/27/23 13:16 Range/Units White Blood Count 14.5 H 4.3-11.0 10^3/uL Red Blood Count 4.76 3.80-5.11 10^6/uL Hemoglobin 13.8 11.5-16.0 g/dL Hematocrit 43 35-52 % Mean Corpuscular Volume 91 80-99 fL Mean Corpuscular Hemoglobin 29 25-34 pg Mean Corpuscular Hemoglobin Concent 32 32-36 g/dL Red Cell Distribution Width 12.5 10.0-14.5 % Platelet Count 286 130-400 10^3/uL Mean Platelet Volume 10.3 9.0-12.2 fL Immature Granulocyte % (Auto) 0 % Neutrophils (%) (Auto) 62 42-75 % Lymphocytes (%) (Auto) 29 12-44 % Monocytes (%) (Auto) 6 0-12 % Eosinophils (%) (Auto) 3 0-10 % Basophils (%) (Auto) 1 0-10 % Neutrophils # (Auto) 8.9 H 1.8-7.8 10^3/uL Lymphocytes # (Auto) 4.2 H 1.0-4.0 10^3/uL Monocytes # (Auto) 0.8 0.0-1.0 10^3/uL Eosinophils # (Auto) 0.4 H 0.0-0.3 10^3/uL Basophils # (Auto) 0.1 0.0-0.1 10^3/uL Immature Granulocyte # (Auto) 0.1 0.0-0.1 10^3/uL Neutrophils % (Manual) 58 % Lymphocytes % (Manual) 22 % Monocytes % (Manual) 6 % Eosinophils % (Manual) 3 % Basophils % (Manual) 1 % Band Neutrophils 2 % Atypical Lymphocytes 8 % Platelet Estimate NORMAL Percent Immature Platelet Fraction 3.7 0.0-7.6 % Blood Morphology Comment NORMAL Prothrombin Time 13.2 12.2-14.7 SEC INR Comment 1.0 0.8-1.4 Activated Partial Thromboplast Time 23 L 24-35 SEC Sodium Level 138 135-145 MMOL/L Potassium Level 3.2 L 3.6-5.0 MMOL/L Chloride Level 102 98-107 MMOL/L Carbon Dioxide Level 22 21-32 MMOL/L Anion Gap 14 5-14 MMOL/L Blood Urea Nitrogen 8 7-18 MG/DL Creatinine 0.87 0.60-1.30 MG/DL Estimat Glomerular Filtration Rate 95 BUN/Creatinine Ratio 9 Glucose Level 124 H 70-105 MG/DL Calcium Level 9.3 8.5-10.1 MG/DL Corrected Calcium 9.1 8.5-10.1 MG/DL Magnesium Level 2.2 1.6-2.4 MG/DL Total Bilirubin 0.6 0.1-1.0 MG/DL Aspartate Amino Transf (AST/SGOT) 19 5-34 U/L Alanine Aminotransferase (ALT/SGPT) 22 0-55 U/L Alkaline Phosphatase 60 40-136 U/L Troponin I < 0.30 <0.30 NG/ML Pro-B-Type Natriuretic Peptide < 36.0 <125.0 PG/ML Total Protein 7.0 6.4-8.2 GM/DL Albumin 4.2 3.2-4.5 GM/DL Lipase 33 8-78 U/L Serum Test, Qualitative NEGATIVE NEGATIVE Urine Color YELLOW Urine Clarity SL CLOUDY Urine pH 7.0 5-9 Urine Specific [place] 1.020 1.016-1.022 Urine Protein 2+ H NEGATIVE Urine Glucose (UA) NEGATIVE NEGATIVE Urine Ketones NEGATIVE NEGATIVE Urine Nitrite NEGATIVE NEGATIVE Urine Bilirubin NEGATIVE NEGATIVE Urine Urobilinogen 0.2 < = 1.0 MG/DL Urine Leukocyte Esterase NEGATIVE NEGATIVE Urine RBC (Auto) NEGATIVE NEGATIVE Urine RBC NONE /HPF Urine WBC 5-10 H /HPF Urine Squamous Epithelial Cells 10-25 H /HPF Urine Crystals PRESENT H /LPF Urine Amorphous Sediment FEW YADIRA URATES H /LPF Urine Bacteria MODERATE H /HPF Urine Casts PRESENT /LPF Urine Hyaline Casts 10-25 H /LPF Urine Mucus SMALL H /LPF Urine Culture Indicated NO My Orders Orders - BELA ESTEBAN MD Cbc And Automated Diff (04/27/23 12:23) Magnesium (04/27/23 12:23) Chest 1 View Ap/Pa Only (04/27/23 12:) Ekg Tracing (04/27/23:) Comprehensive Metabolic Panel (04/27/23:) Protime With Inr (04/27/23 12:) Partial Thromboplastin Time (04/27/23 12:23) O2 (04/27/23 12:) Monitor-Rhythm Ecg Trace Only (04/27/23:) Ed Iv/Invasive Line Start (04/27/23 12:23) Lipase (04/27/23 12:) Troponin I Fs (04/27/23:) Probnp Fs (04/27/23:23) Adenosine Injection (Adenosine Injection (04/27/23:) Ns Iv 1000 Ml (Ns Iv 1000 Ml) (04/27/23 12:23) Ua Culture If Indicated (04/27/23 12:31) Hcg,Qualitative Serum (04/27/23 12:31) Ondansetron Injection (Ondansetron Inj (04/27/23 12:35) Ondansetron Injection (Ondansetron Inj (04/27/23 12:36) Ekg Tracing (04/27/23 12:47) Manual Differential (04/27/23 12:50) Vital Signs/I&O 04/27/23 04/27/23 12:09 12:09 Temp 36.7 Pulse 225 Resp 19 B/P (MAP) 116/74 (88) Pulse Ox 98 O2 Delivery Room Air Room Air Progress Progress Note #1: Progress Note Differential diagnosis includes SVT, atrial fibrillation, cardiac arrhythmia, electrolyte imbalance, dehydration. Establish peripheral IV access and send labs for complete blood count, comprehensive metabolic profile, troponin, proBNP, coagulation factors. Obtain electrocardiogram and placed on cardiac satellite project site monitor. Initial interpretation was her cardiac telemetry showed SVT with a heart rate in the 220s. Ordered a dose of adenosine 6 mg IV along with a liter of normal saline 1 L IV fluid bolus. Patient's blood pressure was 116/84. Progress Note #2: Progress Note Immediately after the adenosine was administered at the patient's heart rate improved from to 120s down to 102. She stated that her chest pressure and feeling like she was going to pass out all resolved. She just felt tired now. Labs showed no acute significant abnormality on the complete blood count. Comprehensive metabolic profile did not show any acute electrolyte abnormalities other than mild hypokalemia with potassium of 3.2.. Patient was feeling better and IV fluids were infusing. We will obtain urinalysis to ensure there is no infection or severe dehydration as well. Progress Note #3: Progress Note Urinalysis looks like there was some contamination but no signs of an acute UTI. Patient continued to feel improved as her heart rate continued to drop down into the 70s and 80s sinus rhythm after the adenosine and as the IV fluids were infusing. Counseled patient on SVT and things she could do at home to try and get her heart back into a normal rhythm. Also encouraged to follow-up with primary care and she may need a cardiology consult or follow-up as well. Encouraged to increase potassium in her diet. Initial ECG Impression Date: Apr 27, 2023 Initial ECG Impression Time: 12:18 Initial ECG Rate: 222 Initial ECG Rhythm: SVT Initial ECG Comparisson: No Previous ECG Available Comment On my initial interpretation and review her electrocardiogram shows SVT with a heart rate of [address]pm. [address] is [address] depression. QT interval of 199 ms with a QTc interval 303 ms. There is no prior tracing available for comparison. There is no ST elevation. EKG : EKG Time: 12:51 Rate: 102 Rhythm: S.Tach ECG Comparisson: Changed (Improved rate and rhythm from 1218 today) Comment Sinus tachycardia with short IA interval and a heart rate of 102 bpm. IA interval 170 ms. Left ventricular hypertrophy. QT interval 346 ms with a QTc interval [address] elevation. Appears improved from tracing done at 1218 today. Diagnostic Imaging Diagonstic Imaging: Xray Plain Films/CT/US/NM/MRI: chest Comments [facility] [place], [place] NAME: RAJENDRA ROPER MED REC#: [id number] PT STATUS: REG ER : 2000 PHYSICIAN: BELA ESTEBAN MD ADMIT DATE: 04/27/23/ER FS Draft Date of Exam:04/27/23 CHEST 1 VIEW AP/PA ONLY INDICATION: heart racing COMPARISON: None FINDINGS: Single frontal view of the chest demonstrates normal heart size and pulmonary vascularity. Lungs show low inspiratory volumes with crowding of the central hilar structures, but are otherwise clear. There is no large effusion or pneumothorax. Osseous structures show no gross acute abnormalities. IMPRESSION: 1. Low lung volumes with crowding of the central hilar structures, but no evidence of focal infiltrate or failure. Dictated on workstation # [id number] Dict: 04/27/23 1239 Trans: 04/27/23 1242 CVB [id number] Interpreted by: SCOUT DUNHAM MD Electronically signed by: Reviewed: Reviewed by Me Departure Impression Primary Impression: Supraventricular tachycardia Additional Impression: Hypokalemia Disposition: HOME, SELF-CARE Condition: Improved Departure-Patient Inst. Decision time for Depature: 13:54 Referrals: SHAHIDA HOLDER MD (PCP/Family) Primary Care Physician Patient Instructions: High Potassium Diet, Hypokalemia (DC), Supraventricular tachycardia (SVT) Add. Discharge Instructions: Try to increase the potassium in your diet. Stay well hydrated Check with Dr. Holder and she may want to have you get a Holter monitor or testing with a family dentist about your SVT If you have another episode you may try bearing down like you are having a bowel movement, coughing, or blowing through a straw to see if it can get your heart rate to slow down. If it is not helping then you may need to be seen again All discharge instructions reviewed with patient and/or family. Voiced understanding. BELA ESTEBAN MD Apr 27, 2023 12:33
[2023-04-27] MEDS ORDERED: ONDANSETRON INJECTION 4 MG/2 ML (SDV) IVP STA (12:35)
[2023-04-27] MEDS ORDERED: ONDANSETRON INJECTION 4 MG/2 ML (SDV) ONE (12:36)
--- NOTE | 2023-04-27 12:42 | Diagnostic Imaging Report ---
INDICATION: heart racing COMPARISON: None FINDINGS: Single frontal view of the chest demonstrates normal heart size and pulmonary vascularity. Lungs show low inspiratory volumes with crowding of the central hilar structures, but are otherwise clear. There is no large effusion or pneumothorax. Osseous structures show no gross acute abnormalities. IMPRESSION: 1. Low lung volumes with crowding of the central hilar structures, but no evidence of focal infiltrate or failure. Dictated by: Dictated on workstation # [id number]
[2023-04-27 13:06] LABS: BASOPHILS # (AUTO) 0.1 10^3/uL (0.0-0.1); BASOPHILS % (AUTO) 1 % (0-10); EOSINOPHILS # (AUTO) 0.4 10^3/uL (0.0-0.3); EOSINOPHILS % (AUTO) 3 % (0-10); HEMATOCRIT 43 % (35-52); HEMOGLOBIN 13.8 g/dL (11.5-16.0); LYMPHOCYTES # (AUTO) 4.2 10^3/uL (1.0-4.0); LYMPHOCYTES % (AUTO) 29 % (12-44); MEAN CORPUSCULAR HEMOGLOBIN 29 pg (25-34); MEAN CORPUSCULAR HGB CONC 32 g/dL (32-36); MEAN CORPUSCULAR VOLUME 91 fL (80-99); MEAN PLATELET VOLUME 10.3 fL (9.0-12.2); MONOCYTES # (AUTO) 0.8 10^3/uL (0.0-1.0); MONOCYTES % (AUTO) 6 % (0-12); NEUTROPHILS # (AUTO) 8.9 10^3/uL (1.8-7.8); NEUTROPHILS % (AUTO) 62 % (42-75); PLATELET COUNT 286 10^3/uL (130-400); WHITE BLOOD COUNT 14.5 10^3/uL (4.3-11.0)
[2023-04-27 13:14] LABS: PROTHROMBIN TIME PATIENT 13.2 SEC (12.2-14.7)
[2023-04-27 13:22] LABS: BILIRUBIN,URINE NEGATIVE (NEGATIVE); COLOR,URINE YELLOW; GLUCOSE, URINE (UA) NEGATIVE (NEGATIVE); KETONES,URINE NEGATIVE (NEGATIVE); LEUKOCYTE ESTERASE ,URINE NEGATIVE (NEGATIVE); NITRITE,URINE NEGATIVE (NEGATIVE); PROTEIN,URINE 2+ (NEGATIVE)
[2023-04-27 13:23] LABS: CARBON DIOXIDE 22 MMOL/L (21-32); CHLORIDE 102 MMOL/L (98-107); POTASSIUM 3.2 MMOL/L (3.6-5.0); SODIUM 138 MMOL/L (135-145)
[2023-04-27 13:24] LABS: ALANINE AMINOTRANSFERASE 22 U/L (0-55); ALBUMIN 4.2 GM/DL (3.2-4.5); ALKALINE PHOSPHATASE 60 U/L (40-136); BILIRUBIN,TOTAL 0.6 MG/DL (0.1-1.0); BUN/CREATININE RATIO 9; CALCIUM 9.3 MG/DL (8.5-10.1); CREATININE SERUM 0.87 MG/DL (0.60-1.30); GFR ESTIMATED 95; GLUCOSE 124 MG/DL (70-105); LIPASE 33 U/L (8-78); MAGNESIUM 2.2 MG/DL (1.6-2.4)
[2023-04-27 13:33] LABS: CLARITY,URINE SL CLOUDY
[2023-04-27 13:34] LABS: AMORPHOUS SEDIMENT,UR FEW AMOR URATES /LPF; BACTERIA,URINE MODERATE /HPF
[2023-04-27 13:43] LABS: ATYPICAL LYMPHOCYTES 8 %; BAND NEUTROPHILS 2 %; BASOPHILS % (MANUAL) 1 %; EOSINOPHILS % (MANUAL) 3 %; LYMPHOCYTES % (MANUAL) 22 %; MONOCYTES % (MANUAL) 6 %; NEUTROPHILS % (MANUAL) 58 %; PLATELET ESTIMATE NORMAL; RBC MORPH NORMAL
== END 2023-04-27 14:11 | disposition home or self-care (01) ==
LOC: EDUNIT# 12:09 → ER FS 12:11
DX: I47.10 Supraventricular tachycardia, unspecified (principal); E87.6 Hypokalemia; I10 Essential (primary) hypertension; E66.9 Obesity, unspecified; Z68.43 Body mass index [BMI] 50.0-59.9, adult
CPT/HCPCS: 36415; 71045; 80053; 81000; 83690; 83735; 83880; 84484; 84703; 85007; 85027; 85610; 85730; 93005; 93041